=== PATIENT | female | born 1940 | race Hispanic/Latino ===

== ENCOUNTER → 2018-04-12 | Day surgery (SDC) | payer MEDICARE, BC ==
[2018-04-11 15:18] LABS: BASOPHILS # (AUTO) 0.1 (0.0-0.1); BASOPHILS % 0.5 % (0.0-1.0); EOSINOPHILS # (AUTO) 0.2 (0.0-0.4); EOSINOPHILS % 1.4 % (0.0-6.0); HEMATOCRIT 37.4 % (34.2-44.1); HEMOGLOBIN 12.8 g/dL (12.0-16.0); LYMPHOCYTES # (AUTO) 2.7 (1.0-3.2); LYMPHOCYTES % 23.9 % (18.0-39.1); MEAN CORPUSCULAR HEMOGLOBIN 33.1 pg (28-32); MEAN CORPUSCULAR HGB CONC 34.2 g/dL (31-35); MEAN CORPUSCULAR VOLUME 96.6 fL (81-99); MONOCYTES % 8.8 % (4.4-11.3); NEUTROPHILS # (AUTO) 7.4 (2.1-6.9); PLATELET COUNT 163 x10e3/uL (140-360); RED BLOOD COUNT 3.87 x10e6/uL (3.6-5.1); RED CELL DISTRIBUTION WIDTH 12.2 % (11.7-14.4)
[~2018-04-12] MED LIST: ALENDRONATE SOD70 MG PO; ARICEPT5 MG PO; CALCIUM ACETAT667 MG PO; CIPRO500 MG PO; CYMBALTA60 MG PO; DIOVAN HCT 1601 EACH PO; DOXYCYCLINE HY100 MG PO; HYDROXYCHLOROQ200 MG PO; JANUMET 50-1,01 EACH PO; LABETALOL HCL 5 MG/ML 20ML VIAL ONE; LEVOTHYROXINE112 MCG PO; LEVOTHYROXINE88 MCG PO; MECLIZINE HCL12.5 MG PO; METHOTREXATE2.5 MG PO; MIDAZOLAM HCL 2 MG/2 ML VIAL ONE; OMEPRAZOLE40 MG PO; ONDANSETRON HCL8 MG PO; PAROXETINE HCL10 MG PO; PROPOFOL IV EMULSION 10 MG/ML 50 ML VIAL ONE; TRADJENTA5 MG PO; TRESIBA SC; Z.0.DIOVAN40 MG PO; Z.0.FOLIC ACID1 MG PO; Z.0.HYDROXYCHLOROQ20 PO; Z.0.JANUVIA100 MG PO; Z.0.LANTUS 3ML100 UN SQ; Z.0.METFORMIN HCL500 PO; Z.0.PAROXETINE HCL20 PO; Z.0.PLAQUENIL200 MG PO; Z.0.SIMVASTATIN40 MG PO; Z.0.SYNTHROID125 MCG PO; Z.1.HUMALOG100 UNIT/ SQ; Z.1.METHOTREXATE2.5 PO
[2018-04-12 14:51] LABS: WBC,FECAL (FECAL LACTOFERRIN) POSITIVE (NEGATIVE)
--- NOTE | 2018-04-12 16:18 | Operative Report ---
DATE OF PROCEDURE: April 12, 2018 REFERRING PHYSICIAN: Dr. Yancy Pradhan. PROCEDURES PERFORMED 1. Esophagogastroduodenoscopy with biopsies. 2. Colonoscopy with polypectomy and biopsies. INDICATIONS FOR EGD: Upper abdominal pain and nausea. INDICATIONS FOR COLONOSCOPY: Lower abdominal pain, diarrhea, history of colon polyps. MEDICATION: Patient was done under MAC. Please see anesthesiologist's note. PROCEDURE: With patient in left lateral decubitus position, a flexible fiberoptic Olympus gastroscope was introduced into the esophagus under direct visualization without any difficulty. There was some patchy erythema noted in distal esophagus. The scope was then advanced with ease into the stomach traversing a small sliding hiatal hernia. Mucosa overlying the antrum revealed some diffuse erythema and moderate edema, and biopsies were obtained and sent to stain for H. pylori. Mucosa overlying the body revealed some patchy areas of somewhat atrophic mucosa, and biopsies were obtained. Pylorus appeared to be of normal contour and shape. He was intubated with ease, and the scope was advanced all the way to the second portion of the duodenum. The scope was then withdrawn slowly. Mucosa overlying the proximal second portion and the duodenal bulb appeared to be within normal limits. The scope was then withdrawn back into the stomach and retroflexed, and the mucosa overlying the fundus and the cardia appeared to be within normal limits. The scope was then straightened out. The stomach was decompressed. The scope was subsequently withdrawn. Patient tolerated the procedure well. IMPRESSION 1. Mild distal esophagitis. 2. Small sliding hiatal hernia. 3. Gastritis, biopsied. Biopsies sent to stain for Helicobacter pylori. PLAN: Follow up histology. Initiate Protonix 40 mg 1 p.o. q.a.m. a.c. Patient was then turned around; and after adequate lubrication of the anal canal, a flexible fiberoptic Olympus colonoscope was inserted into the rectum with ease and advanced all the way to the cecum. There was some focal nodularity in the cecal pouch that was biopsied. The ileocecal valve was intubated, and the scope was advanced into the terminal ileum. Biopsies were obtained. The scope was then withdrawn back into the colon. There was some diverticular disease noted in the cecum as well as the ascending colon. One polyp was hot biopsied from the ascending colon. The transverse grossly appeared to be within normal limits. Diverticular disease was also noted to involve the distal descending and the sigmoid colon. There were some patchy mild inflammatory changes noted in the left colon. Random biopsies were obtained. One polyp was hot biopsied from the descending colon. The scope was then retroflexed into the distal rectum and the area around the dentate line appeared to be within normal limits. The scope was then straightened out. It was subsequently withdrawn after securing an adequate stool specimen that was sent for the appropriate stool studies. Patient tolerated the procedure well. IMPRESSION 1. Focal nodularity, cecal pouch, biopsied. 2. Ascending colon polyp, hot biopsied. 3. Diverticulosis. 4. Descending colon polyp, hot biopsied. 5. Patchy mild left-sided colitis. PLAN: Follow up histology. Follow up stool studies. Initiate VSL#3 one p.o. q.d., Bentyl 10 mg 1 p.o. t.i.d. Timing of followup colonoscopy pending pathology report. Job#: [id number] LPA cc:DR. YANCY PRADHAN
[2018-04-13 14:56] LABS: C DIFFICILE TOXIN A&B AMP PROB **POSITIVE** (NEGATIVE)
--- OUTSIDE RECORDS SUMMARY | 2018-04-22 11:56 | XMS REPORT ---
[facility] Address Unknown Phone Unavailable Care Team Providers Care Surgical Product Sales Consultant Name Role Phone Unavailable Unavailable Payers Payer Name Policy Type Policy Number Effective Date Expiration Date Problems This patient has no known problems. Allergies, Adverse Reactions, Alerts Allergy Name Allergy Type Status Severity Reaction(s) Onset Date Inactive Date Treating Clinician Comments codeine DA Active U 2014-02-23 00:00:00 AMOXICYLIN DA Active U 2014-02-23 00:00:00 CODEINE DA Active U 2005-09-03 00:00:00 No Known Contrast Allergies DA Active U 2005-09-03 00:00:00 No Known Food Allergies DA Active U 2005-09-03 00:00:00 No Known Other Allergies DA Active U 2005-09-03 00:00:00 PENICILLIN DA Active U 2005-09-03 00:00:00 Penicillins DA Active U 2004-04-24 00:00:00 ibuprofen DA Active U 2004-04-24 00:00:00 Medications This patient has no known medications.
== END | disposition home or self-care (01) ==
LOC: OR 10:17
PROVIDERS: ATTEND Internal Medicine Gastroenterology
DX: K29.50 Unspecified chronic gastritis without bleeding (principal); K63.5 Polyp of colon; K51.50 Left sided colitis without complications; K31.89 Other diseases of stomach and duodenum; K20.9 Esophagitis, unspecified; K44.9 Diaphragmatic hernia without obstruction or gangrene; K63.89 Other specified diseases of intestine; K21.9 Gastro-esophageal reflux disease without esophagitis; K57.30 Diverticulosis of large intestine without perforation or abscess without bleeding; I10 Essential (primary) hypertension; R05 Cough; E03.9 Hypothyroidism, unspecified; E11.9 Type 2 diabetes mellitus without complications; Z88.0 Allergy status to penicillin; Z88.6 Allergy status to analgesic agent; Z91.040 Latex allergy status; Z01.810 Encounter for preprocedural cardiovascular examination; Z01.812 Encounter for preprocedural laboratory examination; Z79.4 Long term (current) use of insulin
CPT/HCPCS: 36415 ×2; 43239; 45380; 45384; 82948; 83630; 83993; 85025; 87045; 87177; 87328; 87493; 88305; 88312; 93005; J2250; J3490; 45378

== ENCOUNTER 2018-12-12 16:42 | Inpatient (IN) | payer MEDICARE, BC ==
[~2018-12-12] VITALS: Ht 152.4 cm; Wt 87.6 kg
[~2018-12-12 16:42] MED LIST changes: -LABETALOL HCL 5 MG/ML 20ML VIAL ONE; -MIDAZOLAM HCL 2 MG/2 ML VIAL ONE; -PROPOFOL IV EMULSION 10 MG/ML 50 ML VIAL ONE
--- OUTSIDE RECORDS SUMMARY | 2018-12-12 16:46 | XMS REPORT | Summary of Care ---
Author Author [facility] Organization [facility] Address Unknown Phone Unavailable Encounter HQ Encntr_alias(FIN) [id number] Date(s): 08/23/18 - 08/23/18 [facility] [address] [place] [address]- [phone] Discharge Disposition: Home or Self Care Attending Physician: Yancy Valenzuela MD Admitting Physician: Yancy Valenzuela MD Vital Signs No data available for this section Problem List No data available for this section Allergies, Adverse Reactions, Alerts No data available for this section Medications No data available for this section Results No data available for this section Immunizations No data available for this section Procedures No data available for this section Social History No data available for this section Assessment and Plan No data available for this section
[2018-12-12] MEDS ORDERED: SODIUM CHLORIDE 0.9% 500ML 500 ML IV STA (17:02)
[2018-12-12] MEDS ORDERED: ONDANSETRON HCL INJ 2MG/ML 2ML 2 MG/ML VIAL IV ONE (17:15)
[2018-12-12] MEDS ORDERED: FAMOTIDINE 20 MG/2 ML VIAL IV ONE ×2 (17:15→17:20)
[2018-12-12] MEDS ORDERED: ONDANSETRON HCL INJ 2MG/ML 2ML 2 MG/ML VIAL ONE (17:20)
[2018-12-12] MEDS ORDERED: SODIUM CHLORIDE 0.9% 500ML 500 ML ONE (17:21)
--- NOTE | 2018-12-12 17:34 | NUR ---
NOTIFIED DR MOORE TROP I 0.08
[2018-12-12] MEDS ORDERED: ASPIRIN 325 MG TAB ONE (17:53)
[2018-12-12] MEDS ORDERED: MORPHINE SULFATE 2 MG/ML SYR 1ML IV PRN (18:00)
[2018-12-12] MEDS ORDERED: SODIUM CHLORIDE FLUSH 10 ML SYR INJ PRN (18:00)
[2018-12-12] MEDS ORDERED: ASPIRIN 81 MG CHEW TAB PO ONE (18:00)
[2018-12-12] MEDS ORDERED: DIPHENHYDRAMINE HCL INJ 50 MG/ML VIAL IV PRN (18:00)
[2018-12-12] MEDS ORDERED: ACETAMINOPHEN 325 MG TAB PO PRN (18:00)
[2018-12-12] MEDS ORDERED: ONDANSETRON HCL INJ 2MG/ML 2ML 2 MG/ML VIAL IV PRN (18:00)
[2018-12-12] MEDS ORDERED: ZOLPIDEM TARTRATE 5 MG TAB PO PRN (18:00)
[2018-12-12] MEDS: FAMOTIDINE 20 MG/2 ML VIAL IV SCH (18:04)
--- NOTE | 2018-12-12 18:08 | NUR ---
NOTIFIED [facility] FOR PATIENT TRANSPORT VIA STRETCHER TO [facility], SPOKE WITH [place].
--- NOTE | 2018-12-12 18:11 | Diagnostic Imaging Report ---
Examination: Single AP view of the chest. COMPARISON: None. INDICATION: Shortness of breath DISCUSSION: Lines/tubes: None. Lungs: Increased interstitial markings. No consolidation. Pleura: No pleural effusion or pneumothorax. Heart and mediastinum: The heart and the mediastinum are unremarkable. Bones and soft tissues: No acute bony abnormalities. IMPRESSION: 1. No acute cardiopulmonary abnormalities. Signed by: Dr. Jose Cruz Ansari M.D. on 12/12/2018 6:07 PM
[2018-12-12] MEDS ORDERED: MORPHINE SULFATE INJ 4 MG/ML INJ 1ML IV PRN (18:15)
--- NOTE | 2018-12-12 18:15 | Diagnostic Imaging Report ---
EXAMINATION: CT of the abdomen and pelvis without contrast. TECHNIQUE: Helical CT images of the abdomen and pelvis were performed from the lung bases to the lesser trochanters. No intravenous contrast was given per renal stone protocol. Coronal and sagittal reformatted images were obtained. Dose modulation, iterative reconstruction, and/or weight based adjustment of the mA/kV was utilized to reduce the radiation dose to as low as reasonably achievable. COMPARISON: None. CLINICAL HISTORY:Abdominal pain DISCUSSION: ABSENCE OF INTRAVENOUS CONTRAST DECREASES SENSITIVITY FOR DETECTION OF FOCAL LESIONS AND VASCULAR PATHOLOGY. ABDOMEN/PELVIS: LOWER THORAX: Unremarkable. HEPATOBILIARY:No focal hepatic lesions. No biliary ductal dilation. The gallbladder is normal. SPLEEN: No splenomegaly. PANCREAS: No focal masses or ductal dilatation. ADRENALS: No adrenal nodules. KIDNEYS/URETERS: No hydronephrosis, stones, or solid mass lesions. PELVIC ORGANS/BLADDER: Bladder decompressed. Hysterectomy. PERITONEUM/RETROPERITONEUM: No free air or fluid. LYMPH NODES: No intra-abdominal,retroperitoneal, pelvic or inguinal lymphadenopathy. VESSELS: Limited evaluation GI TRACT: No obstruction. BONES AND SOFT TISSUES: Bone island in the right sacrum. IMPRESSION: No acute noncontrast CT finding. Signed by: Dr. Jose Cruz Ansari M.D. on 12/12/2018 6:11 PM
--- OUTSIDE RECORDS SUMMARY | 2018-12-12 18:27 | XMS REPORT | Continuity of Care Document ---
Author Author Aki gutierrez [facility] Interface Address Unknown Phone Unavailable Problems Problem Status Onset Date Classification Date Reported Comments Source XRAY Active 08/23/2018 [facility] 719.49 Active [facility] JOINT PAIN-MULT JTS Active [facility] PAIN IN RIGHT FOREARM Active [facility] Medications Medication Details Route Status Patient Instructions Ordering Provider Order Date Source Allergies, Adverse Reactions, Alerts Substance Category Reaction Severity Reaction type Status Date Reported Comments Source Immunizations Immunization Date Given Site Status Last Updated Comments Source Results Order Name Results Value Reference Range Date Interpretation Comments Source Forearm 2 views DX Forearm 2 views DX Patient Name: ARNOLD PARRA : 1940; Age: 78 years y/o Female MR: [id number] Study: 2 view examination of the right forearm dated 08/23/2018. Clinical Indication: - Fall; right forearm injury. Comparison: None Soft tissue swelling is seen to the posterior soft tissues of the right proximal to mid forearm. Mild olecranon spurring. Triangular fibrocartilage calcification noted. Osteopenia. No fracture, dislocation or radiopaque foreign body. SL: CSODEKYLEE-DENNYS 08/23/2018 - - Read by: Rory Cordova MD Dictated Date/time: 08/23/18 15:12 Electronically Signed by: Rory Cordova MD 08/23/18 15:14 FINAL REPORT [facility] Wrist complete DX Wrist complete DX Patient Name: ARNOLD PARRA : 1940; Age: 78 years y/o Female MR: [id number] Study: 3 view examination of the right wrist dated 08/23/2018. Clinical Indication: - Fall; right wrist injury Comparison: None Osteopenia. There is a 7 x 4 mm lucent lesion in the proximal and mid scaphoid bone that likely represents degenerative cyst. There is some degenerative changes about the radiocarpal joint. [place] fibrocartilage calcification identified. No fracture or dislocation. If there is snuffbox tenderness, cannot exclude an occult scaphoid fracture. Vascular calcification seen about the right wrist. SL: CSODERSTROM-PC 08/23/2018 - - Read by: Rory Cordova MD Dictated Date/time: 08/23/18 15:04 Electronically Signed by: Rory Cordova MD 08/23/18 15:06 FINAL REPORT [facility] Hand AP lateral Bilateral Hand AP lateral Bilateral Examination: Bilateral hands, 4 views History: 719.49 Pain in Joint Involving Multiple Sites Comparison: None. Findings: Multiple views of the bilateral hands show no acute bony fracture, joint dislocation, or suspicious osseous erosion. Scattered mild to moderate osteoarthritic changes throughout the DIP joints are seen with joint space narrowing and marginal osteophyte formation. The bones are demineralized. The soft tissues are unremarkable. Chondrocalcinosis in the region of the right triangular fibrocartilage is seen. IMPRESSION: 1. No acute bony abnormality of the bilateral hands and no suspicious osseous erosion. 2. 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 3. Chondrocalcinosis. SL: 12 08/06/2013 - - Read by: Jordin Vasquez Dictated Date/time: 08/06/13 17:56 Electronically Signed by: Jordin Vasquez MD 08/06/13 17:57 FINAL REPORT [facility] Vital Signs Vital Sign Value Date Comments Source Encounters Location Location Details Encounter Type Encounter Number Reason For Visit Attending Provider ADM Date DC Date Status Source [facility] Outpatient [id number] 719.49 LEILANI NELSON 08/06/2013 Active [facility] [id number] Yancy Valenzuela 08/23/2018 08/24/2018 [facility] Procedures Procedure Code Date Perfomer Comments Source
[2018-12-12] MEDS ORDERED: DEXTROSE 50% SYRINGE 50 ML IV PRN (18:30)
[2018-12-12] MEDS ORDERED: METOPROLOL TARTRATE 25 MG TAB PO SCH (18:30)
[2018-12-12] MEDS ORDERED: ENOXAPARIN SODIUM INJ 100 MG/ML SYR SC ONE (18:30)
[2018-12-12] MEDS ORDERED: METOPROLOL TARTRATE 50 MG TAB ONE ×2 (18:42→18:45)
[2018-12-12] MEDS ORDERED: ENOXAPARIN INJ 80 MG/0.8 ML SYR SC ONE ×2 (18:45→21:15)
[2018-12-12] MEDS: METOPROLOL TARTRATE 25 MG TAB PO SCH (18:48)
--- NOTE | 2018-12-12 18:50 | NUR ---
Received report from previous nurse. Call light within reach. Patient arrived via stretcher. Daughters at bedside
--- NOTE | 2018-12-12 19:03 | NUR ---
VERBAL REPORT GIVEN TO MISAEL LOZA.
[2018-12-12 19:45] VITALS: BP 167/72
[2018-12-12 20:00] VITALS: BP 167/72
--- NOTE | 2018-12-12 20:30 | NUR ---
Called [facility] about the patient who came in and asked if the patient received Lovenox shot which was suppose to be given at 1845. [facility] nurse, Nury said they did not have lovenox. I called Pharmacy to reschedule the medication and will administer lovenox injection here.
[2018-12-12 20:46] LABS: CREATINE KINASE MB 0.9 ng/mL (0-5.0)
[2018-12-12] MEDS: INSULIN REGULAR, HUMAN 100 UNIT/1 ML 3ML VIAL SQ SCH (21:32)
[2018-12-12] MEDS ORDERED: HYDROXYCHLOROQ200 MG PO (22:35)
[2018-12-12] MEDS ORDERED: FOLIC ACID1 MG PO (22:35)
[2018-12-12] MEDS ORDERED: VITAMIN D1000 UNI1 PO (22:35)
[2018-12-12] MEDS ORDERED: METHOTREXATE2.5 MG PO (22:35)
[2018-12-12] MEDS ORDERED: LEVOTHYROXINE88 MCG PO (22:35)
[2018-12-12] MEDS ORDERED: SUCRALFATE1 GM PO (22:35)
[2018-12-12] MEDS ORDERED: JANUVIA100 MG PO (22:35)
[2018-12-12] MEDS ORDERED: MECLIZINE HCL12.5 MG PO (22:35)
[2018-12-12] MEDS ORDERED: CYMBALTA30 MG PO (22:35)
[2018-12-12] MEDS: ENALAPRILAT IV INJ 1.25 MG/ML VIAL IV PRN (22:40)
[2018-12-12] MEDS ORDERED: CLOPIDOGREL BISULFATE 75 MG TAB PO ONE (23:00)
[2018-12-12] MEDS: ATORVASTATIN 20 MG TAB PO SCH (23:38)
[2018-12-12] MEDS: ASPIRIN 81 MG ENTERIC COATED PO SCH (23:38)
[2018-12-12] MEDS: NITROGLYCERIN 2% OINT 1 GM PKT TOP SCH (23:40)
[2018-12-13] VITALS (7 sets, daily range): BP systolic 119–163; BP diastolic 55–69
[2018-12-13 05:29] LABS: CREATINE KINASE MB 0.8 ng/mL (0-5.0)
[2018-12-13 05:47] LABS: CHOL/HDL RATIO 2.4 (3.0-3.6)
[2018-12-13] MEDS: FAMOTIDINE 20 MG/2 ML VIAL IV SCH ×2 (06:02→17:00)
[2018-12-13] MEDS: NITROGLYCERIN 2% OINT 1 GM PKT TOP SCH (06:02)
[2018-12-13] MEDS: METOPROLOL TARTRATE 25 MG TAB PO SCH ×2 (06:02→17:03)
--- NOTE | 2018-12-13 07:01 | NUR ---
GAVE REPORT TO ONCOMING NURSE. CALL LIGHT WITHIN REACH. PATIENT IN BED. DAUGHTER AT BEDSIDE.
[2018-12-13] MEDS: INSULIN REGULAR, HUMAN 100 UNIT/1 ML 3ML VIAL SQ SCH ×4 (08:05→20:30)
[2018-12-13] MEDS: ASPIRIN 81 MG ENTERIC COATED PO SCH (08:34)
[2018-12-13] MEDS: ASPIRIN 325 MG TAB EC PO SCH (08:34)
[2018-12-13] MEDS: SITAGLIPTIN 100 MG TAB PO SCH (13:02)
--- NOTE | 2018-12-13 13:26 | History and Physical ---
PRIMARY CARE PHYSICIAN: Dr. Yancy Valenzuela. FREELANCE GRAPHIC DESIGNER: Dr. Padilla Spain. CHIEF COMPLAINT: Chest pain with abnormal troponin I. HISTORY OF PRESENT ILLNESS: An 78-year-old female, passed approximately 4-5 days ago. Since then the patient was having a lot of agitation and stress, came in with epigastric pain, radiating to her back. The patient had a CT scan of abdomen and pelvis that was negative. The patient also had last years EGD and colonoscopy with unremarkable results. The patient's imaging abdominal and pelvic and chest x-ray unremarkable. However, on the blood work, her troponin I is 0.53, 0.52 on the second set. Her LDL was 57. The patient is otherwise stable. Baseline with multiple chronic medical problems including diabetes, hypertension, dyslipidemia. PAST SURGICAL HISTORY: Cholecystectomy, hysterectomy. SOCIAL HISTORY: The patient does not smoke or use alcohol. No recreational drugs. PAST MEDICAL HISTORY: Diabetes, functional dementia, depression, anxiety disorder, hypothyroidism, rheumatoid arthritis, dyslipidemia, hypertension, insulin required diabetes type 2. PHYSICAL EXAMINATION: VITAL SIGNS: Temperature is 98, blood pressure 141/65, pulse rate 53, respirations 20. GENERAL: The patient is not in acute distress. She is awake. HEENT: Normocephalic, atraumatic. Anicteric. NECK: Supple grossly. PULMONARY: Diminished breath sounds. CARDIOVASCULAR: S1, S2. Regular rate and rhythm. ABDOMEN: Soft, obese, nontender, non-distention. EXTREMITIES: No gross cyanosis or edema. NEUROLOGIC: No gross focal deficit. LABORATORY DATA: Sodium is 144, potassium 4, chloride 105, bicarb 30, BUN is 22, creatinine 1.6, glucose is 186. AST 137, ALT 81, alkaline phos 184. WBC 9.2, hemoglobin 10.8, hematocrit 33.5, platelets 205. Troponin I 0.53 and 0.52. LDL is 57. IMPRESSION: 1. Atypical chest pain with elevation of troponin I. Given the patient has been in a lot of stress lately, this could be anxiety with panic attack with cardiac troponin I spillage, but the patient does have multiple risk factors for coronary artery disease including rheumatoid arthritis, hypertension, dyslipidemia, diabetes, on insulin therapy. The patient should have a cardiac workup. Discussed with the patient and family. 2. Multiple chronic baseline problems. PLAN: Echocardiogram. Consultation with Dr. Padilla Spain. Home medication adjustment. We will continue to monitor this patient closely. MD SONJA Mendoza/ASHLEY /[id number]
--- NOTE | 2018-12-13 14:00 | NUR ---
REC'D PT AAOX3 VIA WHEELCHAIR, ON ROOM AIR, NO S/S OF DISTRESS, IV 20 GAUGE RIGHT AC WITH NO COMPLICATIONS. DRESSING IS DRY AND INTACT. TELE BOX #4 RUNNING AT SINUS RADHA. SIDE RAILS UP X2, CALL MCCARTY WITHIN REACH, AND BED IN LOWEST POSITION. DAUGHTER AT BEDSIDE.
[2018-12-13 14:37] LABS: CREATINE KINASE MB 0.9 ng/mL (0-5.0)
--- NOTE | 2018-12-13 14:57 | NUR ---
Nutrition Screen Note RD Recommendation for Physician: Consider changing to an 1800 ADA Plan of Care: RD following, monitoring for tolerance and adequacy Nutrition reason for involvement: Nutrition Risk Trigger - MST Primary Diagnose(s):[place] PMH:T2DM, Hypothyroidism, HTN, hyperlipidemia, cholecystectomy, dementia, Ht:60 in Wt:197lb BMI:38.5 kg/m2 IBW:100lb RD Assessment: (12/13/2018) Chart reviewed. Labs and meds reviewed. Initial encounter with patient. Diet Hx: Pt has no known food allergies. 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 Pt denies any difficulty chewing or swallowing. No N,V,D. No wt changes. Current Diet: Cardiac diet Malnutrition Evaluation (12/13/2018) The patient does not meet criteria for a specified degree of malnutrition at this time. Will re-evaluate at follow-up as appropriate. Diet Education Needs Assessment: Diet education not indicated. Nutrition Care Level:low Signed: Peter Bess RD, LD, [facility]
--- NOTE | 2018-12-13 16:08 | Consultation ---
DATE OF CONSULTATION: 12/13/2018 Neurology Consult Note HISTORY OF PRESENT ILLNESS: Ms. Orantes is an 78-year-old right-hand dominant woman with past medical history significant for hypertension, hyperlipidemia, diabetes mellitus type 2, and dementia, admitted to [facility] on December 12, 2018, under observation status for chest and abdominal pain. The Neurology Service is consulted for right-sided weakness. The patient and her daughters, who are at the bedside, endorse right hemiparesis. When questioned further, the patient's daughter's report Ms. Orantes leans or drifts toward the right side when sitting, standing, or walking. Often when she falls, it is toward the right side. One daughter suspects Ms. Orantes has weakness of the right leg as well. Other symptoms endorsed by the patient and her daughters are poor balance, impairment of gait, and a persistent sensation of dizziness, which is further described as vertiginous sensation. Neither the patient nor her daughters report a visual field cut or other disturbance, dysarthria, aphasia, facial droop, or weakness of the right arm. Neither the patient nor her daughters report numbness or tingling over the feet and forelegs. However, Ms. Orantes does report numbness over both hands and fingers. As stated above, the patient does have a history of dementia, probably of the Alzheimer type, diagnosed within the past few years. According to the patient's daughters, the above symptoms began approximately one year ago and have progressively worsened during this time. For the past two months, Ms. Orantes has required either a cane or a walker with ambulation. Neither the patient nor her daughters report an abrupt onset of the above symptoms. Ms. Orantes does not take anti-platelet or anticoagulant medication at home on a routine basis. Ms. Orantes does have an outpatient neurologist, Dr. Franchesca Finley, who treats her dementia. As regarding the patient's dementia, over the last few months, Ms. Orantes has experienced paranoid delusions and at times verbally aggressive behavior. The patient's daughters have scheduled a followup with Dr. Finley to discuss these symptoms. However, the followup appointment is not until the end of February 2019. REVIEW OF SYSTEMS: Chest pain, abdominal pain, anxiety, verbally aggressive behavior, paranoid delusions, memory impairment, possible weakness of the right leg, numbness of the hands and fingers, impairment of balance and gait, dizziness, which is further described as a vertiginous sensation. Otherwise, a 12-point review of systems is negative. PAST MEDICAL HISTORY: Hypertension, hyperlipidemia, diabetes mellitus type 2, thyroid disease, rheumatoid arthritis, osteoarthritis, multiple urinary tract infections, anxiety, dementia, presumably of the Alzheimer type, chronic vertigo. PAST SURGICAL HISTORY: Right knee replacement, cholecystectomy, total hysterectomy, right carpal tunnel release x2, hernia repair x2, bilateral cataract removal, surgery for an L1 vertebral compression fracture, section x2. PAST HOSPITALIZATIONS: Surgeries/procedures as listed, bilateral lower extremity cellulitis, chest pain, UTIs. FAMILY MEDICAL HISTORY: The patient's paternal and maternal grandparents are . Their medical histories are unknown. The patient's father is from a stroke. Her mother is . The mother's medical history is not known. Ms. Orantes had seven siblings, five brothers and two sisters. All five brothers and one sister are . One brother is from a stroke. Another brother from natural causes. Third brother from complications of alcoholism. The medical history and causes of of the other brothers is unknown. The sister who is , had coronary artery disease with a myocardial infarction and diabetes mellitus. One sister is living. She has prediabetes mellitus. Ms. Orantes has two children, both girls, who are alive. One daughter has diabetes mellitus. The other is healthy. SOCIAL HISTORY: Ms. Orantes is a recent . Her two weeks ago. The patient is retired. There is no reported current or prior tobacco, alcohol, or recreational drug use. HOME MEDICATIONS: Vitamin D3 of 50,000 units by mouth weekly, donepezil 10 mg by mouth daily, Cymbalta 60 mg by mouth daily, folic acid 1 mg by mouth twice daily, Plaquenil 200 mg by mouth at bedtime daily, Humalog 3 units subcutaneously sliding scale, levothyroxine 100 mcg by mouth daily, linagliptin 5 mg by mouth daily, meclizine 12.5 mg by mouth twice daily, methotrexate 2.5 mg by mouth weekly, paroxetine 20 mg by mouth daily, simvastatin 40 mg by mouth daily, Januvia 100 mg by mouth daily, sucralfate 1 g by mouth twice daily, Diovan 160/12.5 one tablet by mouth daily, Tresiba 10 units subcutaneously at bedtime daily. HOSPITAL MEDICATIONS: Tylenol, aspirin, Lipitor, Benadryl, Aricept, Cymbalta, enalapril, Lovenox, folic acid, Plaquenil, Humulin, Synthroid, meclizine, morphine sulfate, linagliptin, Zofran, paroxetine, Zocor, Januvia, sucralfate, and Ambien. ALLERGIES: PENICILLIN, CODEINE. NO KNOWN FOOD ALLERGIES. POSITIVE LATEX ALLERGY. NO KNOWN ALLERGIES TO IODINE OR OTHER CONTRAST MATERIALS. PHYSICAL EXAMINATION: VITAL SIGNS: Height 60 inches, weight 197 pounds, BMI 38.5 kg/m2. Blood pressure 119/56 mmHg, pulse 51 beats per minute, respiratory rate 17 breaths per minute, oxygen saturation 94% on 3 L by nasal cannula. GENERAL: The patient is awake and alert, does not appear distressed. Morbidly obese. HEENT: Normocephalic, atraumatic. Pupils are surgical. Moist mucous membranes. NECK: Supple. No appreciable thyromegaly. No appreciable carotid bruits. CARDIOVASCULAR: S1, S2, regular rate and rhythm. No murmurs, rubs, or gallops. RESPIRATORY: Clear to auscultation bilaterally. No wheezes, rhonchi, or rales. EXTREMITIES: The skin is warm and dry. No clubbing, cyanosis, or edema. The posterior tibial and dorsalis pedis pulses are 1+ and symmetric. SKIN: No rashes or lesions. NEUROLOGIC: Memory/Attention: The patient is awake and alert, oriented to person, place, time, and situation. Cranial Nerves: Cranial nerve I - not tested. Cranial nerve II, III, IV, and - pupils are surgical. Extraocular movements intact. No nystagmus. Cranial nerve V - sensation to light touch and pinprick is intact in the bilateral V1 through V3 distributions. Strength in the temporalis and masseter muscles is within normal limits. Cranial nerve VII - the face is symmetric as are all facial movements. Strength is within normal limits. Cranial nerve VIII - hearing is intact to finger rub bilaterally. Cranial nerve IX, X - the soft palate elevates equally and symmetrically. Cranial nerve XI - normal strength of the bilateral sternocleidomastoid and trapezius muscles. Cranial nerve XII - the tongue protrudes midline and moves symmetrically from [id number]. Strength: Bulk is normal. Strength is 5/5 in the bilateral deltoids, biceps, triceps, wrist flexors and extensors, finger flexors and extensors, intrinsic hand muscles, hip flexors, knee flexors and extensors, ankle dorsiflexion and plantar flexion, and intrinsic foot muscles. Tone is normal. DTRs: Deep tendon reflexes are 1+ and symmetric at the triceps and biceps. Deep tendon reflexes are trace and symmetric at the brachioradialis. Deep tendon reflexes are absent and symmetric at the patellas and Achilles. Plantar responses are flexor bilaterally. Sensation: Sensation is intact to light touch and pinprick in both arms and both legs. Cerebellar: Lwjgmr-qotr-wnmrni and heel-lechuga movements are intact without dysmetria or other impairments except as follows: There is mild dysmetria with [id number] movements of the right arm. Gait: Deferred. Speech: Spontaneous speech is normal without appreciable dysarthria or aphasia. Repetition is intact. Involuntary movements: None. Pronator Drift: Subtle in the right arm. LABORATORY DATA: POC glucose 131, 211. Creatine kinase 50, 45. CK-MB 0.90, 0.80. Troponin I 0.535, 0.521. Total cholesterol 126, triglycerides 87, LDL cholesterol 57, HDL cholesterol 52. DIAGNOSTIC STUDIES: Electrocardiogram on 12/12/2018: Normal sinus rhythm at 63 beats per minute. Right bundle-branch block. Chest x-ray on 12/12/2018: No acute cardiopulmonary abnormalities. CT of the abdomen/pelvis on 12/12/2018: No acute noncontrast CT finding. ASSESSMENT AND PLAN: Ms. Orantes is an 78-year-old right-hand dominant woman with multiple vascular risk factors, admitted to [facility] with chest pain. For the past one year (approximately), Ms. Orantes has been noted to lean/fall toward the right while sitting, standing, or walking, poor balance, impairment of gait, and dizziness which is further described as a vertiginous sensation. The patient's neurological examination is significant for diminished distal deep tendon reflexes, mild dysmetria of the right arm, and subtle pronator drift of the right arm. Her laboratory data and other diagnostic studies have been reviewed and are documented above. The patient's symptoms and findings on her neurological examination are suspicious for stroke of the posterior circulation. Specifically, a stroke of the right superior cerebellar hemisphere or cerebellar vermis. RECOMMENDATIONS: Are as follows: 1. A MRI of the brain without contrast will be ordered for further evaluation. 2. Defer treatment of the remaining medical comorbidities to the primary and other services at this time. Thank you for this consultation. I will continue to follow the patient while she remains in the hospital. TIME SPENT: 50 minutes. Ronit Fairbanks MD CP/ASHLEY /[id number] MTDAlphonso
--- NOTE | 2018-12-13 16:58 | Consultation ---
DATE OF CONSULTATION: 12/13/2018 REASON FOR CONSULTATION: Elevated troponin. CHIEF COMPLAINT: Abdominal pain. HISTORY OF PRESENT ILLNESS: This is an 78-year-old female with a history of hypertension, hyperlipidemia, diabetes, hypothyroidism, rheumatoid arthritis, chronic UTIs, chronic kidney disease, and early-onset dementia. [facility] with apparent complaints of abdominal pain, had a CT of the abdomen, showed no acute abnormalities noted. The patient went to see her PCP due to this abdominal pain x4 weeks, however, the abdominal pain progressed and was radiating into her back, so therefore went to the ER for further evaluation. In the ER, she was noted with elevated troponin and Cardiology was consulted. The patient is seen in the room, family is at the bedside, reports abdominal pain for about 4 weeks, however, over the past week progressed and radiated to her back. Reports abdominal pain exacerbated by oral intake, burning sensation with abdominal tenderness. The patient denies any chest pains, any shortness of breath, any orthopnea, any PND. EKG showing sinus rhythm with a right bundle branch block. Repeat troponins have been flat at 0.5 and 0.5 x2. PAST MEDICAL HISTORY: Hypertension, hyperlipidemia, diabetes, hypothyroidism, dementia, rheumatoid arthritis, chronic UTIs. PAST SURGICAL HISTORY: Cholecystectomy, hysterectomy, , hernia surgery x2, right carpal tunnel surgery x2, right knee surgery. SOCIAL HISTORY: She is a , her recently about 4 days ago. She is retired from [employer]. No alcohol or tobacco use. FAMILY HISTORY: Mother in the 70s, unknown cause. Father at 97, apparently had a history of stroke. She has a sister, who apparently had a history of [place] and diabetes. HOME MEDICATIONS: Aricept 10 mg daily, Cymbalta 60 mg daily, folic acid 1 mg b.i.d., hydroxychloroquine 200 mg daily, Humalog 3 units sliding scale, levothyroxine 100 mcg daily, Tradjenta 5 mg daily, meclizine 12.5 mg p.o. b.i.d., methotrexate 2.5 on Saturday, paroxetine 20 mg daily, simvastatin 40 mg daily, Januvia 100 mg daily, Carafate 1 g p.o. b.i.d., valsartan/hydrochlorothiazide 160/12.5 daily. ALLERGIES: PENICILLIN, CODEINE, AND LATEX. REVIEW OF SYSTEMS: GENERAL: No recent weight changes. Positive for fatigue, weakness. Denies any fevers, chills, or night sweats. HEENT: Denies any nausea, vomiting, vision changes, any blurred vision, double vision, earaches, any tinnitus, epistaxis, hoarseness, sore throat, swollen neck. CARDIAC: Denies any chest pain. Positive for dyspnea on exertion. Denies any orthopnea, PND, or lower extremity edema. RESPIRATORY: Denies any hemoptysis. Positive for shortness of breath on exertion. GI: Reports good appetite, however, reports epigastric pain, burning sensation, exacerbated by oral intake. Denies any diarrhea, constipation, melena, or hematochezia. URINARY: Positive for frequency, urgency. Denies any dysuria or hematuria. VASCULAR: Denies any lower extremity edema, claudication. MUSCULOSKELETAL: Generalized joint pains reported. NEUROLOGIC: Denies any tremors, any weakness, any blackout, seizures. HEMATOLOGY: Denies easy bruising, bleeding. ENDOCRINE: Denies any heat or cold intolerance. No polyuria, polydipsia, or polyphagia. PHYSICAL EXAMINATION: VITAL SIGNS: Height 60 inches, weight 197 pounds, BMI 38.5, temperature 97.9, pulse 51, respiratory rate 17, blood pressure 119/56, sat 94% on 2 L nasal cannula. GENERAL: Appears stated age, in no acute distress. SKIN: No rashes or bruises noted. HEENT: Normocephalic. Pupils equal and reactive. Extraocular movements are intact. Trachea midline. No thyromegaly noted. No JVD. Slight soft right carotid bruit noted. HEART: Regular rate and rhythm. Soft systolic murmur noted in the right upper sternal border. LUNGS: Bilateral breath sounds clear to auscultation. Good airway entry and exit. ABDOMEN: Soft. Positive for epigastric tenderness. No organomegaly noted. MUSCULOSKELETAL: Generalized muscle weakness. VASCULAR: +2 bilateral radial pulses, +1 DP, PT pulses bilaterally. NEUROLOGIC: Cranial nerves II through XII seem intact. LABORATORY DATA: Troponin 0.5 and 0.5. Glucose 211. LDL 57, HDL 52, total cholesterol 126, triglycerides 87. Sodium 144, potassium 4, chloride 105, bicarb 30, BUN 22, creatinine 1.6, glucose 186. IMAGING DATA: Chest x-ray, no acute cardiopulmonary abnormalities. CT of abdomen and pelvis, no contrast, no acute findings. ASSESSMENT: 1. Abdominal pain. 2. Gastritis. 3. Hypertension. 4. Hyperlipidemia. 5. Diabetes. 6. Chronic renal insufficiency. 7. Troponin leak. 8. Forgetful. 9. Obesity. PLAN: 1. The patient presents with epigastric pain, tenderness, was noted with elevated troponins as an outpatient. Denies any chest pain. We will evaluate the patient with an echo to evaluate heart function and structure. We will go ahead, get into carotid to evaluate any carotid anatomy. 2. We will go ahead and place the patient on telemetry to evaluate for any arrhythmias. We will go ahead and place the patient back on her statin and antihypertensive therapy. 3. We will continue to monitor the patient and adjust cardiac therapy as clinical course dictates. Further recommendation as clinical course dictates. Dictated by Chadwick Saunders NP Asif Spain MD DC/ASHLEY /[id number]
[2018-12-13] MEDS: MECLIZINE HCL 12.5 MG TAB PO SCH (16:59)
[2018-12-13] MEDS: FOLIC ACID 1 MG TAB PO SCH (16:59)
[2018-12-13] MEDS: ENOXAPARIN SOD INJ 40 MG/0.4 ML SYR SC SCH (17:01)
[2018-12-13] MEDS: SUCRALFATE 1 GM TAB PO SCH (17:01)
--- NOTE | 2018-12-13 19:15 | NUR ---
Received change of shift report from AM nurse. Rounds completed.
--- NOTE | 2018-12-13 19:42 | NUR ---
Patient in bed. No c/o pain at this time. AAOx3. IV to right AC intact. Will F/Up.
[2018-12-13] MEDS: DONEPEZIL HCL 5 MG TAB PO SCH (20:37)
[2018-12-13] MEDS: ATORVASTATIN 20 MG TAB PO SCH (20:37)
[2018-12-13] MEDS: HYDROXYCHLOROQUINE SULFATE 200 MG TAB PO SCH (20:38)
[2018-12-13] MEDS: TRESIBA SC SCH (20:38)
[2018-12-13] MEDS: SIMVASTATIN 40 MG TAB PO SCH (20:38)
[2018-12-14] VITALS (8 sets, daily range): BP systolic 146–174; BP diastolic 61–81
--- NOTE | 2018-12-14 | NUR ---
Patient AAOx1-2. Very lethargic. Turn q 2 hours and prn. Patient BS at 168. No insulin given because patient not eatting well. HR down to 40 but did not continue.
[2018-12-14] MEDS ORDERED: ACETAMINOPHEN 325 MG TAB PO PRN (00:15)
[2018-12-14] MEDS: LEVOTHYROXINE SODIUM 100 MCG TAB PO SCH (05:23)
[2018-12-14] MEDS: FAMOTIDINE 20 MG/2 ML VIAL IV SCH (05:23)
[2018-12-14] MEDS: METOPROLOL TARTRATE 25 MG TAB PO SCH ×2 (05:23→18:34)
[2018-12-14 05:58] LABS: BASOPHILS # (AUTO) 0.1 (0.0-0.1); BASOPHILS % 0.9 % (0.0-1.0); EOSINOPHILS # (AUTO) 0.3 (0.0-0.4); EOSINOPHILS % 3.7 % (0.0-6.0); HEMATOCRIT 32.7 % (34.2-44.1); HEMOGLOBIN 10.8 g/dL (12.0-16.0); LYMPHOCYTES # (AUTO) 1.8 (1.0-3.2); LYMPHOCYTES % 23.8 % (18.0-39.1); MEAN CORPUSCULAR HEMOGLOBIN 33.8 pg (28-32); MEAN CORPUSCULAR VOLUME 102.2 fL (81-99); MONOCYTES # (AUTO) 0.8 (0.2-0.8); MONOCYTES % 10.4 % (4.4-11.3); NEUTROPHILS # (AUTO) 4.6 (2.1-6.9); NEUTROPHILS % 60.9 % (38.7-80.0); PLATELET COUNT 163 x10e3/uL (140-360); RED CELL DISTRIBUTION WIDTH 13.2 % (11.7-14.4)
--- NOTE | 2018-12-14 06:10 | NUR ---
Patient resting quitly at this time with no c/o.
[2018-12-14 06:32] LABS: INR 0.97; PROTHROMBIN TIME 13.4 seconds (11.9-14.5)
[2018-12-14 06:43] LABS: ALBUMIN/GLOBULIN RATIO 1.1 (0.8-2.0); CREATININE, SERUM 1.51 mg/dL (0.57-1.11); PHOSPHORUS 3.4 MG/DL (2.3-4.7)
[2018-12-14 07:05] LABS: THYROID STIMULATING HORMONE 3.08 uIU/mL (0.350-4.940)
--- NOTE | 2018-12-14 07:10 | NUR ---
REC'D PATIENT ASLEEP. CHEST IS RISING UP AND DOWN WITH UNLABORED BREATHING. NO S/S OF DISTRESS. DAUGHTER AT THE BEDSIDE. BED IN LOWEST POSITION, SIDE RAILS UP X2, AND CALL MCCARTY WITHIN REACH.
--- NOTE | 2018-12-14 07:26 | NUR ---
CALLED IMAGING TO GET INFORMATION OVER BROKEN MRI MACHINE. WILL CALL BACK TO REPORT ANY INFORMATION ON MRI MACHINE STATUS.
[2018-12-14] MEDS: INSULIN REGULAR, HUMAN 100 UNIT/1 ML 3ML VIAL SQ SCH ×4 (07:30→21:28)
[2018-12-14 07:37] LABS: CHOL/HDL RATIO 2.9 (3.0-3.6)
[2018-12-14 07:43] LABS: CREATINE KINASE MB 0.9 ng/mL (0-5.0)
[2018-12-14] MEDS: PAROXETINE HCL 20 MG TAB PO SCH (08:26)
[2018-12-14] MEDS: DULOXETINE HCL 30 MG DELAYED RELEASE PO SCH (08:26)
[2018-12-14] MEDS: SITAGLIPTIN 100 MG TAB PO SCH (08:26)
[2018-12-14] MEDS: ASPIRIN 325 MG TAB EC PO SCH (08:26)
[2018-12-14] MEDS: FOLIC ACID 1 MG TAB PO SCH ×2 (08:26→18:33)
[2018-12-14] MEDS: SUCRALFATE 1 GM TAB PO SCH ×2 (08:26→17:00)
[2018-12-14] MEDS: MECLIZINE HCL 12.5 MG TAB PO SCH ×2 (08:26→18:33)
[2018-12-14] MEDS: LINAGLIPTIN 5 MG PO SCH (08:27)
--- NOTE | 2018-12-14 09:32 | NUR ---
CALLED RADIOLOGY TO GET UPDATE ON MRI MACHINE. HAS BEEN FIXED AND THEY ARE JUST WAITING ON THE CRUISE GUIDE TO GET HERE. NOTIFIED THEM THAT PATIENT HAS A STAT ORDER FOR MRI SINCE YESTERDAY. RADIOLOGY SAID THEY WILL LET THE CRUISE GUIDE KNOW.
--- NOTE | 2018-12-14 09:34 | NUR ---
MELINA FROM OR CALLED AND DR. DUNNE RESUMED ALL MEDICATIONS AND ADA DIET FOR PATIENT.
--- NOTE | 2018-12-14 10:11 | NUR ---
PATIENT TAKEN DOWN FOR MRI VIA WHEELCHAIR. D/C TELEMETRY ORDER PLACED BY DR. BLOOD.
--- NOTE | 2018-12-14 11:17 | NUR ---
PATIENT RETURNED FROM MRI PROCEDURE.
--- NOTE | 2018-12-14 11:45 | Diagnostic Imaging Report ---
History: vertigo Comparison studies: None Technique: Sagittal T2; axial DWI, FLAIR, MPGR, T1, Coronal FLAIR. Intravenous contrast: None Findings: Scalp: Normal in signal . No masses . Bone marrow: Normal in signal intensity. Extra-axial: No masses or fluid collections. Brain sulci: Appropriate for age. Ventricles: Normal in size . No hydrocephalus . Parenchyma: A few scattered T2 FLAIR hyperintense foci in the supratentorial white matter are nonspecific small vessel ischemic changes. No masses, hemorrhage, acute or chronic cortical ischemic insults. Suprasellar region: No abnormalities. Craniocervical junction: No abnormalities. Patent foramen magnum. No Chiari one malformation. Vessels: Normal flow-voids in the arteries and sinuses. IMPRESSION: 1. Minimal age-related supratentorial white matter small vessel ischemic changes. 2. Otherwise, no abnormalities. Signed by: Dr. Rohith Senior M.D. on 12/14/2018 11:42 AM
[2018-12-14 11:56] LABS: FOLATE > 40.0 ng/mL (7.0-15.4)
--- NOTE | 2018-12-14 11:57 | NUR ---
CALLED AND READ MRI RESULTS TO DR. COWAN.
--- NOTE | 2018-12-14 15:03 | NUR ---
URINE COLLECTED FOR URINE CULTURE AND URINALYSIS WITH MICRO. SPECIMEN CUP DATED, INITIALED, AND TIMED ON PATIENT'S LABEL STICKER. DROPPED OFF TO LAB.
[2018-12-14 15:18] LABS: BILIRUBIN,URINE NEGATIVE (NEGATIVE); CLARITY,URINE CLEAR (CLEAR); COLOR,URINE YELLOW (YELLOW); KETONES,URINE NEGATIVE (NEGATIVE); LEUKOCYTE ESTERASE ,URINE TRACE (NEGATIVE); NITRITE,URINE NEGATIVE (NEGATIVE); PROTEIN,URINE DIPSTICK 1+ (NEGATIVE); URINE UROBILINOGEN 0.2 mg/dL (0.2 - 1)
[2018-12-14 15:29] LABS: EPITHELIAL CELLS,URINE FEW /LPF; RBC,URINE 0-5 /HPF (0-5); WBC,URINE (MAN) 0-5 /HPF (0-5)
[2018-12-14] MEDS: ENALAPRILAT IV INJ 1.25 MG/ML VIAL IV PRN (16:10)
--- NOTE | 2018-12-14 17:42 | NUR ---
PATIENT IN BED ON ROOM AIR WITH NO S/S OF DISTRESS. DAUGHTERS AT BEDSIDE. BED IN LOWEST POSITION, SIDE RAILS UPX2, AND CALL MCCARTY WITHIN REACH.
--- NOTE | 2018-12-14 17:50 | NUR ---
ADAPTED PHYSICAL EDUCATION TEACHER IN ROOM PERFORMING ULTRASOUND OF ABDOMEN.
--- NOTE | 2018-12-14 18:30 | NUR ---
ULTRASOUND AT THE BEDSIDE COMPLETE.
[2018-12-14] MEDS: ENOXAPARIN SOD INJ 40 MG/0.4 ML SYR SC SCH (18:33)
[2018-12-14] MEDS: DONEPEZIL HCL 5 MG TAB PO SCH (21:28)
[2018-12-14] MEDS: SIMVASTATIN 40 MG TAB PO SCH (21:28)
[2018-12-14] MEDS: ATORVASTATIN 20 MG TAB PO SCH (21:29)
[2018-12-14] MEDS: HYDROXYCHLOROQUINE SULFATE 200 MG TAB PO SCH (21:29)
[2018-12-14] MEDS: TRESIBA SC SCH (21:30)
[2018-12-15 00:04] VITALS: BP 154/67
[2018-12-15 04:41] VITALS: BP 135/59
[2018-12-15] MEDS: LEVOTHYROXINE SODIUM 100 MCG TAB PO SCH (05:43)
[2018-12-15] MEDS: METOPROLOL TARTRATE 25 MG TAB PO SCH (05:44)
--- NOTE | 2018-12-15 07:05 | NUR ---
Gave report to oncoming nurse. Patient is asleep in bed. Daughter at bedside. Call light within reach
--- NOTE | 2018-12-15 07:06 | NUR ---
Gave report to alona em. Patient is asleep in bed. Call light within reach Addendum: 12/15/18 at 0707 by Tori Stuart RN entered in error
[2018-12-15] MEDS: INSULIN REGULAR, HUMAN 100 UNIT/1 ML 3ML VIAL SQ SCH ×3 (07:30→16:30)
--- NOTE | 2018-12-15 07:30 | Diagnostic Imaging Report ---
EXAM: US ABDOMEN COMPLETE INDICATION: Abdominal pain. COMPARISON: CT Abdomen/Pelvis without contrast 12/12/2018 TECHNIQUE: Transverse and longitudinal mack scale and color doppler sonographic images of the abdomen were obtained. FINDINGS: Somewhat limited study due to the patient's large body habitus. LIVER Measures 10.6 cm in the right midclavicular line. Normal echogenicity of the liver with normal contour, no masses. SPLEEN Measures 10.2 cm in maximum diameter. Normal echogenicity, no masses. GALLBLADDER Status post cholecystectomy. BILE DUCTS No intra nor extra-hepatic biliary dilation. Common bile duct measures 0.3 cm PANCREAS: Visualized portions are normal. RIGHT KIDNEY: Measures 9.5 cm Echogenicity: Normal Collecting System: No hydronephrosis Stones: None Cyst/Mass: None LEFT KIDNEY: Measures 9.2 cm Echogenicity: Normal Collecting System: No hydronephrosis Stones: None Cyst/Mass: None VESSELS: Aorta: Visualized portions are within normal size limits Inferior Vena Cava: Visualized portions are normal Main Portal Vein: 1.1 cm, normal size with hepatopetal flow. FREE FLUID: None IMPRESSION: No acute sonographic abnormality. Status post cholecystectomy. Signed by: Dr. Mac Newsome MD on 12/15/2018 7:26 AM
[2018-12-15 07:46] VITALS: BP 133/61
[2018-12-15 08:15] VITALS: BP 133/61
[2018-12-15] MEDS: PAROXETINE HCL 20 MG TAB PO SCH (08:15)
[2018-12-15] MEDS: MECLIZINE HCL 12.5 MG TAB PO SCH (08:15)
[2018-12-15] MEDS: DULOXETINE HCL 30 MG DELAYED RELEASE PO SCH (08:15)
[2018-12-15] MEDS: SUCRALFATE 1 GM TAB PO SCH (08:15)
[2018-12-15] MEDS: SITAGLIPTIN 100 MG TAB PO SCH (08:15)
[2018-12-15] MEDS: ASPIRIN 325 MG TAB EC PO SCH (08:15)
[2018-12-15] MEDS: LINAGLIPTIN 5 MG PO SCH (09:00)
[2018-12-15] MEDS ORDERED: CLOPIDOGREL BISULFATE 75 MG TAB PO SCH (09:00)
[2018-12-15] MEDS ORDERED: FAMOTIDINE 20 MG TAB PO SCH (11:00)
[2018-12-15] MEDS ORDERED: SUCRALFATE 1 GM TAB PO SCH (11:30)
--- NOTE | 2018-12-15 11:31 | NUR ---
CM TO BEDSIDE TO DISCUSS IMM AND MEDICARE RIGHTS - QUESTIONS ANSWERED. PATIENT/FAMILY VERBALIZED UNDERSTANDING. CM OBTAINED SIGNATURE. COPY OF LETTER TO THE CHART AND COPY LEFT AT BEDSIDE.
[2018-12-15 11:36] VITALS: BP 136/63
[2018-12-15] MEDS ORDERED: ONDANSETRON HCL 4 MG ORAL DISINTEGRATING TAB PO PRN (12:45)
[2018-12-15] MEDS ORDERED: SEROQUEL25 MG PO (15:44)
[2018-12-15] MEDS ORDERED: CYMBALTA20 MG PO (15:45)
[2018-12-15 15:58] VITALS: BP 151/65
--- NOTE | 2018-12-15 16:01 | NUR ---
ORDER RECEIVED FOR SNF LOC FOR IV ABX. CALL WAS PLACED TO THE PT'S DTR ARIADNA, BUT STATES HER BROTHER BRANDI IS HER MPOA AND HANDLES ALL OF THEIR MOTHER'S BUSINESS. CALL WAS PLACED TO STEPH @ [phone]. CONSENT WAS GIVEN FOR CHOICE LETTER FOR [facility]. 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 COPY TO CHART AND COPY TO PT'S FOLDER. EXPLAINED IMM LETTER. VERBALIZED UNDERSTANDING. IMM LETTER WAS SIGNED AND COPY TO CHART AND COPY TO PT'S FOLDER. CLINICALS WERE FAXED TO [facility] @ OFF: [phone] / FAX: [phone]. CONTACT: BHARGAVI WU WAS INITIATED. Addendum: 12/15/18 at 1614 by Lilia Maurice CM ABOVE NOTE ENTERED IN ERROR.
--- NOTE | 2018-12-15 16:50 | NUR ---
patient alert and oriented with daughter at the bedside. discharge instructions discussed at this time, both verbalized understanding. IV discontinued, catheter in tact and pressure dressing applied. patient to be wheeled out to personal auto for daughter to drive home.
[2018-12-15] MEDS ORDERED: DULOXETINE HCL 20 MG DELAYED RELEASE PO SCH (17:00)
[2018-12-15] MEDS ORDERED: DULOXETINE HCL 30 MG DELAYED RELEASE PO SCH (17:00)
[2018-12-15] MEDS ORDERED: QUETIAPINE FUMARATE 25 MG TAB PO SCH (21:00)
--- NOTE | 2018-12-15 22:57 | Consultation ---
DATE OF CONSULTATION: 12/15/2018 Psychiatric Consultation. The patient evaluated and events noted. REASON FOR CONSULTATION: To evaluate patient's psychosis and dementia and mood. HISTORY OF PRESENT ILLNESS: The patient is an 78-year-old female, admitted to the hospital for myocardial infarction. Psychiatric consultation is called to evaluate the patient's psychosis. As per medical record, the patient has history of hypertension, hyperlipidemia, diabetes, dementia, admitted to [facility] for chest pain and abdominal pain. Upon evaluation today, the patient is found to be in the room with her daughter. She is alert, awake, and oriented to situation. She agrees to have daughter in the room during the assessment. The patient is irritable, tests and labs. She is frustrated and easily irritable. She reported anxiety and depression. Her recently . She feeling hopeless and helpless. Does not believe that life is worth living, but denies any suicidal ideation. She denies any hallucination. She reports poor sleep and poor appetite. The patient is diabetic. Collaborative report from the daughter who is in the room, daughter reports that since the patient's she has been isolative. She is verbally uncooperative and verbally aggressive at times. She refused to take her medication. At times, she refuses to go to the doctor, even though she appears to have very supportive daughters. The patient's daughter claims that the patient has been forgetful, paranoid, and believes people were stealing her things, and at this time medication of Seroquel antipsychotic was discussed and daughter agreed that her mom would benefit from such medication. Side effect of antipsychotic was discussed and daughter agreed and verbalized understanding. Daughter also agrees to have follow with outpatient psychiatry. PAST PSYCHIATRIC HISTORY: The patient denies past psychiatric history, although she has history of dementia and takes medication for depression. She denies past suicide attempts. She denies alcohol or drug use. SOCIAL HISTORY: Denies. SOCIAL HISTORY: The patient lives alone. MENTAL STATUS EXAM: The patient is a female. She is alert, awake, and oriented to situation. Her mood is depressed, anxious, irritable, or hostile. Affect congruent with mood. Psychomotor status is activated. She denies any suicidal or homicidal ideation. She denies any hallucination. Thought process is concrete. Thought content is suspicious and paranoia. Insight and judgment are limited to fair. Memory appears to be grossly impaired. CURRENT MEDICATIONS: 1. Sucralfate. 2. Famotidine. 3. Insulin. 4. Plavix. 5. Januvia. 6. Antivert. 7. Lopressor. 8. Synthroid. 9. Hydroxychloroquine sulfate. 10. Lipitor. 11. Aricept. 12. Tylenol. 13. Morphine p.r.n. 14. Cymbalta 60 mg p.o. daily. 15. Ondansetron. 16. Folic acid. 17. Dextrose. 18. Sodium chloride. CURRENT LABS: WBC 7.59, RBC 3.20, hemoglobin 10.8, hematocrit 32.7, platelets 163. Sodium 139, potassium 4, chloride 106, CO2 is 27, BUN 25, creatinine 1.51. AST 79, ALT 65. ASSESSMENT: 1. Unspecified psychosis. 2. Unspecified dementia with behavior disturbance. 3. Major depressive disorder, recurrent, moderate. PLAN: 1. Increase Cymbalta to 40 mg p.o. b.i.d. 2. Add Seroquel 25 mg p.o. at bedtime. 3. Continue with Aricept 10 mg p.o. at bedtime. 4. Recommend follow with outpatient psychiatry. 5. Recommend family members to help with the medication delivery. 6. Monitor for mood. 7. Supportive therapy. Thank you for this consultation. Dictated by Amparo Smith PA-C José Miguel Arriaza MD [facility]/MODL /[id number]
--- NOTE | 2018-12-16 00:58 | Discharge Summary ---
CONSULTANTS: Dr. Padilla Spain. Dr. Fairbanks. Dr. José Miguel Arriaza. FINAL DIAGNOSES: 1. Chest pain with slight elevation of troponin I 0.5. 2. Major depression with anxiety disorder. 3. Abdominal pain, ongoing. 4. Baseline reflux, obesity, and anxiety disorder. SUMMARY: The patient is an 78-year-old female per family been symptomatic with multiple pain area, chest pain, abdominal pain, shoulder pain, pain all over. Apparently, the patient was more anxious and depressed along with paranoia symptoms per patient's family. The patient's spouse approximately 4-5 days ago, but since then the patient is having increasing multiple complaints. She is on extensive multiple medication. She is anxious and had depression. She is on multiple SSRI. The patient has slight increase in troponin I on chest pain, 0.5 multiple sets. The patient did not want any cardiac workup at this time per Dr. Padilla Spain. Option was given. The patient, however, is very anxious. Neurology consultation obtained. MRI of the brain was negative. CT scan abdomen and pelvis is otherwise unremarkable. The patient is otherwise stable at this time. Psychiatry, Dr. José Miguel Arriaza saw the patient and changes were made to patient's medication overall. Prescriptions are given. The patient to follow up with Dr. Arriaza as an outpatient for further medication adjustment. At this time, the patient is stable, discharged home, follow up closely as an outpatient for any further workup. I advised the patient to have cardiac workup in the near future. MD SONJA Mendoza/ASHLEY /[id number]
[2018-12-16] MEDS ORDERED: FOLIC ACID 1 MG TAB PO SCH (09:00)
== END 2018-12-15 16:53 | disposition home or self-care (01) | DRG 880 ==
LOC: FSED 16:42 → ERHOLD 18:01 → IMCU 19:52 → OBSVTOIN 12-13 10:21 → MED/SURG3 12-13 14:24
PROVIDERS: ADMIT Internal Medicine; ATTEND Internal Medicine
DX: F41.0 Panic disorder [episodic paroxysmal anxiety] (principal); F03.91 Unspecified dementia, unspecified severity, with behavioral disturbance; F32.9 Major depressive disorder, single episode, unspecified; F41.9 Anxiety disorder, unspecified; K21.9 Gastro-esophageal reflux disease without esophagitis; E66.9 Obesity, unspecified; Z68.37 Body mass index [BMI] 37.0-37.9, adult; M06.9 Rheumatoid arthritis, unspecified; I10 Essential (primary) hypertension; E78.5 Hyperlipidemia, unspecified; E11.9 Type 2 diabetes mellitus without complications; Z90.49 Acquired absence of other specified parts of digestive tract; Z90.710 Acquired absence of both cervix and uterus; D53.1 Other megaloblastic anemias, not elsewhere classified; F29 Unspecified psychosis not due to a substance or known physiological condition
CPT/HCPCS: 36415; 70551; 71045; 74176; 76700; 80048; 80053; 80061; 80076; 81001; 81003; 82550; 82553; 82607; 82746; 82948; 83735; 84100; 84443; 84484; 85025; 85610; 87086; 93005; 93306; 93880; 99284; G0378; J1200; J1650; J2270; J2405; J7040

== ENCOUNTER 2020-10-05 17:48 | Inpatient (IN) | payer MEDICARE, BC ==
[~2020-10-05] VITALS: Ht 157.5 cm; Wt 76.5 kg
[~2020-10-05 17:48] MED LIST changes: +CYMBALTA20 MG PO; +CYMBALTA30 MG PO; +FOLIC ACID1 MG PO; +JANUVIA100 MG PO; +SEROQUEL25 MG PO; +SUCRALFATE1 GM PO; +VITAMIN D1000 UNI1 PO
[2020-10-05] MEDS ORDERED: MECLIZINE HCL 12.5 MG TAB PO ONE (18:15)
[2020-10-05] MEDS ORDERED: SODIUM CHLORIDE 0.9% 1000ML 1,000 ML ONE (18:27)
[2020-10-05 18:37] LABS: BASOPHILS # (AUTO) 0.1 (0.0-0.1); BASOPHILS % 0.4 % (0.0-1.0); EOSINOPHILS % 0.3 % (0.0-6.0); HEMOGLOBIN 14.3 g/dL (12.0-16.0); LYMPHOCYTES # (AUTO) 1.9 (1.0-3.2); LYMPHOCYTES % 13.9 % (18.0-39.1); MEAN CORPUSCULAR HEMOGLOBIN 33.6 pg (28-32); MEAN CORPUSCULAR VOLUME 98.8 fL (81-99); MONOCYTES # (AUTO) 0.7 (0.2-0.8); MONOCYTES % 5.3 % (4.4-11.3); NEUTROPHILS # (AUTO) 11.1 (2.1-6.9); NEUTROPHILS % 79.7 % (38.7-80.0); PLATELET COUNT 207 x10e3/uL (140-360); RED BLOOD COUNT 4.25 x10e6/uL (3.6-5.1); RED CELL DISTRIBUTION WIDTH 13.3 % (11.7-14.4)
[2020-10-05] MEDS: SODIUM CHLORIDE 0.9% 1000ML 1,000 ML IV SCH (18:40)
[2020-10-05 19:07] LABS: ALBUMIN 4.1 g/dL (3.5-5.0); ALBUMIN/GLOBULIN RATIO 1.4 (0.8-2.0); ANION GAP 19.9 mmol/L (8-16); CALCIUM 9.1 mg/dL (8.4-10.2); CREATININE, SERUM 1.76 mg/dL (0.57-1.11); POTASSIUM 3.9 mmol/L (3.5-5.1)
[2020-10-05 19:13] LABS: CREATINE KINASE MB 1.4 ng/mL (0-5.0)
[2020-10-05] MEDS ORDERED: ASPIRIN 81 MG CHEW TAB PO ONE (20:00)
[2020-10-05 21:53] LABS: CLARITY,URINE CLOUDY (CLEAR); COLOR,URINE YELLOW (YELLOW); KETONES,URINE 1+ (NEGATIVE); LEUKOCYTE ESTERASE ,URINE NEGATIVE (NEGATIVE); NITRITE,URINE NEGATIVE (NEGATIVE); PROTEIN,URINE DIPSTICK 2+ (NEGATIVE); URINE UROBILINOGEN 0.2 mg/dL (0.2 - 1)
[2020-10-05 22:03] LABS: AMORPHOUS SEDIMENT,URINE MANY (FEW); BACTERIA,URINE MODERATE /HPF; EPITHELIAL CELLS,URINE FEW /LPF; RBC,URINE 0-5 /HPF (0-5); WBC,URINE (MAN) 0-5 /HPF (0-5)
[2020-10-05 23:00] VITALS: BP 137/69
[2020-10-06] VITALS (24 sets, daily range): BP systolic 101–161; BP diastolic 41–91
[2020-10-06] MEDS: SODIUM CHLORIDE 0.9% 1000ML 1,000 ML IV SCH ×2 (04:20→04:31)
[2020-10-06 05:32] LABS: CREATINE KINASE MB 1.6 ng/mL (0-5.0)
[2020-10-06 06:33] LABS: CHOL/HDL RATIO 2.4 (3.0-3.6)
[2020-10-06 08:26] LABS: BASOPHILS # (AUTO) 0.1 (0.0-0.1); BASOPHILS % 0.4 % (0.0-1.0); EOSINOPHILS # (AUTO) 0.2 (0.0-0.4); EOSINOPHILS % 1.3 % (0.0-6.0); HEMATOCRIT 38.2 % (34.2-44.1); HEMOGLOBIN 12.7 g/dL (12.0-16.0); LYMPHOCYTES # (AUTO) 2.5 (1.0-3.2); LYMPHOCYTES % 18.9 % (18.0-39.1); MEAN CORPUSCULAR HEMOGLOBIN 33.9 pg (28-32); MEAN CORPUSCULAR HGB CONC 33.2 g/dL (31-35); MEAN CORPUSCULAR VOLUME 101.9 fL (81-99); MONOCYTES # (AUTO) 0.7 (0.2-0.8); MONOCYTES % 5.2 % (4.4-11.3); NEUTROPHILS % 73.8 % (38.7-80.0); PLATELET COUNT 151 x10e3/uL (140-360); RED BLOOD COUNT 3.75 x10e6/uL (3.6-5.1); RED CELL DISTRIBUTION WIDTH 13.2 % (11.7-14.4)
[2020-10-06 08:36] LABS: ANION GAP 21.5 mmol/L (8-16); CALCIUM 8.7 mg/dL (8.4-10.2); CREATININE, SERUM 1.54 mg/dL (0.57-1.11); POTASSIUM 3.5 mmol/L (3.5-5.1)
[2020-10-06] MEDS ORDERED: DEXTROSE 50% SYRINGE 50 ML IV PRN (08:45)
[2020-10-06] MEDS ORDERED: PAROXETINE HCL 20 MG PO SCH (09:00)
[2020-10-06] MEDS: LEVOTHYROXINE SODIUM 100 MCG TAB PO SCH (09:00)
[2020-10-06] MEDS ORDERED: CLINDAMYCIN 600MG / 50ML 50 ML IV ONE (10:50)
[2020-10-06] MEDS: PAROXETINE HCL 20 MG TAB PO SCH (11:30)
[2020-10-06] MEDS: INSULIN LISPRO 100 UNIT/1 ML 3ML VIAL SQ SCH ×3 (12:30→20:59)
[2020-10-06] MEDS: MECLIZINE HCL 12.5 MG TAB PO SCH ×2 (12:30→17:23)
[2020-10-06] MEDS: DULOXETINE HCL 20 MG DELAYED RELEASE PO SCH ×2 (12:30→17:23)
[2020-10-06] MEDS: FOLIC ACID 1 MG TAB PO SCH ×2 (12:30→17:23)
[2020-10-06] MEDS: SITAGLIPTIN 100 MG TAB PO SCH (12:30)
[2020-10-06] MEDS: AZTREONAM 1 GM/NS 50 ML 50 ML IV SCH ×2 (12:30→21:09)
[2020-10-06 14:08] LABS: CREATINE KINASE MB 1.8 ng/mL (0-5.0)
[2020-10-06] MEDS: ENOXAPARIN SOD INJ 40 MG/0.4 ML SYR SC SCH (17:23)
[2020-10-06] MEDS: TRESIBA 10 UNIT SQ SCH (21:00)
[2020-10-06] MEDS: DONEPEZIL HCL 5 MG TAB PO SCH (21:09)
[2020-10-06] MEDS: QUETIAPINE FUMARATE 25 MG TAB PO SCH (21:10)
[2020-10-06] MEDS: METOPROLOL TARTRATE 25 MG TAB PO SCH (21:10)
[2020-10-06] MEDS: HYDROXYCHLOROQUINE SULFATE 200 MG TAB PO SCH (21:10)
[2020-10-06] MEDS: SIMVASTATIN 40 MG TAB PO SCH (21:10)
[2020-10-07] VITALS (12 sets, daily range): BP systolic 126–154; BP diastolic 53–114
[2020-10-07] MEDS: SODIUM CHLORIDE 0.9% 1000ML 1,000 ML IV SCH ×3 (00:12→20:15)
[2020-10-07 05:01] LABS: BASOPHILS # (AUTO) 0.1 (0.0-0.1); BASOPHILS % 0.6 % (0.0-1.0); EOSINOPHILS # (AUTO) 0.2 (0.0-0.4); EOSINOPHILS % 1.8 % (0.0-6.0); HEMATOCRIT 36.4 % (34.2-44.1); HEMOGLOBIN 12.1 g/dL (12.0-16.0); LYMPHOCYTES # (AUTO) 1.3 (1.0-3.2); LYMPHOCYTES % 12.8 % (18.0-39.1); MEAN CORPUSCULAR HEMOGLOBIN 33.8 pg (28-32); MEAN CORPUSCULAR HGB CONC 33.2 g/dL (31-35); MEAN CORPUSCULAR VOLUME 101.7 fL (81-99); MONOCYTES # (AUTO) 0.6 (0.2-0.8); MONOCYTES % 6.2 % (4.4-11.3); NEUTROPHILS # (AUTO) 7.9 (2.1-6.9); NEUTROPHILS % 78.2 % (38.7-80.0); PLATELET COUNT 155 x10e3/uL (140-360); RED BLOOD COUNT 3.58 x10e6/uL (3.6-5.1); RED CELL DISTRIBUTION WIDTH 13.1 % (11.7-14.4)
[2020-10-07 05:19] LABS: ANION GAP 13.3 mmol/L (8-16); CALCIUM 8.3 mg/dL (8.4-10.2); CREATININE, SERUM 1.38 mg/dL (0.57-1.11); POTASSIUM 3.3 mmol/L (3.5-5.1)
[2020-10-07] MEDS: LEVOTHYROXINE SODIUM 100 MCG TAB PO SCH (06:27)
[2020-10-07] MEDS: INSULIN LISPRO 100 UNIT/1 ML 3ML VIAL SQ SCH ×4 (08:08→20:51)
[2020-10-07] MEDS ORDERED: POTASSIUM CHLORIDE 10MEQ EA PO ONE (09:00)
[2020-10-07] MEDS: MECLIZINE HCL 12.5 MG TAB PO SCH ×2 (09:37→17:22)
[2020-10-07] MEDS: AZTREONAM 1 GM/NS 50 ML 50 ML IV SCH ×2 (09:37→20:50)
[2020-10-07] MEDS: ASPIRIN 81 MG ENTERIC COATED PO SCH (09:37)
[2020-10-07] MEDS: DULOXETINE HCL 20 MG DELAYED RELEASE PO SCH ×2 (09:37→17:22)
[2020-10-07] MEDS: FOLIC ACID 1 MG TAB PO SCH ×2 (09:38→17:22)
[2020-10-07] MEDS: SITAGLIPTIN 100 MG TAB PO SCH (09:38)
[2020-10-07] MEDS: PAROXETINE HCL 20 MG TAB PO SCH (09:38)
[2020-10-07] MEDS: METOPROLOL TARTRATE 25 MG TAB PO SCH ×2 (09:39→20:25)
[2020-10-07] MEDS: ENOXAPARIN SOD INJ 40 MG/0.4 ML SYR SC SCH (17:22)
[2020-10-07] MEDS: SIMVASTATIN 40 MG TAB PO SCH (20:50)
[2020-10-07] MEDS: QUETIAPINE FUMARATE 25 MG TAB PO SCH (20:50)
[2020-10-07] MEDS: HYDROXYCHLOROQUINE SULFATE 200 MG TAB PO SCH (20:50)
[2020-10-07] MEDS: DONEPEZIL HCL 5 MG TAB PO SCH (20:50)
[2020-10-07] MEDS: TRESIBA 10 UNIT SQ SCH (20:51)
[2020-10-08] VITALS (9 sets, daily range): BP systolic 103–158; BP diastolic 45–64
[2020-10-08] MEDS: LEVOTHYROXINE SODIUM 100 MCG TAB PO SCH (05:42)
[2020-10-08] MEDS: MECLIZINE HCL 12.5 MG TAB PO SCH ×2 (05:44→16:09)
[2020-10-08] MEDS: SODIUM CHLORIDE 0.9% 1000ML 1,000 ML IV SCH ×3 (05:49→21:27)
[2020-10-08] MEDS: INSULIN LISPRO 100 UNIT/1 ML 3ML VIAL SQ SCH ×4 (07:30→21:00)
[2020-10-08] MEDS: METOPROLOL TARTRATE 25 MG TAB PO SCH ×2 (08:31→21:26)
[2020-10-08] MEDS: FOLIC ACID 1 MG TAB PO SCH ×2 (08:42→16:09)
[2020-10-08] MEDS: SITAGLIPTIN 100 MG TAB PO SCH (08:42)
[2020-10-08] MEDS: ASPIRIN 81 MG ENTERIC COATED PO SCH (08:42)
[2020-10-08] MEDS: DULOXETINE HCL 20 MG DELAYED RELEASE PO SCH ×2 (08:42→16:09)
[2020-10-08] MEDS: PAROXETINE HCL 20 MG TAB PO SCH (08:42)
[2020-10-08] MEDS: AZTREONAM 1 GM/NS 50 ML 50 ML IV SCH ×2 (10:24→21:26)
[2020-10-08] MEDS ORDERED: ONDANSETRON HCL INJ 2MG/ML 2ML 2 MG/ML VIAL IV PRN (16:00)
[2020-10-08] MEDS: ENOXAPARIN SOD INJ 40 MG/0.4 ML SYR SC SCH (16:09)
[2020-10-08] MEDS: TRESIBA 10 UNIT SQ SCH (21:00)
[2020-10-08] MEDS: QUETIAPINE FUMARATE 25 MG TAB PO SCH (21:26)
[2020-10-08] MEDS: SIMVASTATIN 40 MG TAB PO SCH (21:26)
[2020-10-08] MEDS: HYDROXYCHLOROQUINE SULFATE 200 MG TAB PO SCH (21:26)
[2020-10-08] MEDS: DONEPEZIL HCL 5 MG TAB PO SCH (21:26)
[2020-10-09] VITALS (8 sets, daily range): BP systolic 103–146; BP diastolic 40–74
[2020-10-09] MEDS: LEVOTHYROXINE SODIUM 100 MCG TAB PO SCH (05:21)
[2020-10-09] MEDS: INSULIN LISPRO 100 UNIT/1 ML 3ML VIAL SQ SCH ×4 (07:30→21:00)
[2020-10-09] MEDS: MECLIZINE HCL 12.5 MG TAB PO SCH ×2 (08:37→17:14)
[2020-10-09] MEDS: PAROXETINE HCL 20 MG TAB PO SCH (08:37)
[2020-10-09] MEDS: ASPIRIN 81 MG ENTERIC COATED PO SCH (08:37)
[2020-10-09] MEDS: DULOXETINE HCL 20 MG DELAYED RELEASE PO SCH ×2 (08:37→17:14)
[2020-10-09] MEDS: FOLIC ACID 1 MG TAB PO SCH ×2 (08:37→17:14)
[2020-10-09] MEDS: AZTREONAM 1 GM/NS 50 ML 50 ML IV SCH ×2 (08:37→22:07)
[2020-10-09] MEDS: SITAGLIPTIN 100 MG TAB PO SCH (08:37)
[2020-10-09] MEDS: METOPROLOL TARTRATE 25 MG TAB PO SCH ×2 (08:37→22:09)
[2020-10-09] MEDS ORDERED: ERGOCALCIFEROL 50,000 UNIT CAP PO SCH (09:00)
[2020-10-09] MEDS: SODIUM CHLORIDE 0.9% 1000ML 1,000 ML IV SCH ×2 (11:28→22:18)
[2020-10-09] MEDS: ENOXAPARIN SOD INJ 40 MG/0.4 ML SYR SC SCH (17:14)
[2020-10-09] MEDS: TRESIBA 10 UNIT SQ SCH (21:00)
[2020-10-09] MEDS: DONEPEZIL HCL 5 MG TAB PO SCH (22:07)
[2020-10-09] MEDS: HYDROXYCHLOROQUINE SULFATE 200 MG TAB PO SCH (22:10)
[2020-10-09] MEDS: SIMVASTATIN 40 MG TAB PO SCH (22:10)
[2020-10-09] MEDS: QUETIAPINE FUMARATE 25 MG TAB PO SCH (22:10)
[2020-10-10] VITALS (7 sets, daily range): BP systolic 126–171; BP diastolic 52–70
[2020-10-10 05:34] LABS: BASOPHILS # (AUTO) 0.1 (0.0-0.1); BASOPHILS % 0.9 % (0.0-1.0); EOSINOPHILS # (AUTO) 0.3 (0.0-0.4); EOSINOPHILS % 4.1 % (0.0-6.0); HEMATOCRIT 34.8 % (34.2-44.1); HEMOGLOBIN 11.3 g/dL (12.0-16.0); LYMPHOCYTES # (AUTO) 1.9 (1.0-3.2); LYMPHOCYTES % 26.1 % (18.0-39.1); MEAN CORPUSCULAR HEMOGLOBIN 33.4 pg (28-32); MEAN CORPUSCULAR HGB CONC 32.5 g/dL (31-35); MONOCYTES # (AUTO) 1.1 (0.2-0.8); MONOCYTES % 14.7 % (4.4-11.3); NEUTROPHILS % 53.5 % (38.7-80.0); PLATELET COUNT 139 x10e3/uL (140-360); RED BLOOD COUNT 3.38 x10e6/uL (3.6-5.1); RED CELL DISTRIBUTION WIDTH 13.8 % (11.7-14.4)
[2020-10-10] MEDS: LEVOTHYROXINE SODIUM 100 MCG TAB PO SCH (05:53)
[2020-10-10 05:55] LABS: ANION GAP 8.6 mmol/L (8-16); CALCIUM 7.9 mg/dL (8.4-10.2); CREATININE, SERUM 1.04 mg/dL (0.57-1.11); POTASSIUM 3.6 mmol/L (3.5-5.1)
[2020-10-10] MEDS: INSULIN LISPRO 100 UNIT/1 ML 3ML VIAL SQ SCH ×4 (07:30→21:00)
[2020-10-10] MEDS: METOPROLOL TARTRATE 25 MG TAB PO SCH ×2 (09:45→21:00)
[2020-10-10] MEDS: SITAGLIPTIN 100 MG TAB PO SCH (09:45)
[2020-10-10] MEDS: PAROXETINE HCL 20 MG TAB PO SCH (09:45)
[2020-10-10] MEDS: AZTREONAM 1 GM/NS 50 ML 50 ML IV SCH ×2 (09:45→21:00)
[2020-10-10] MEDS: DULOXETINE HCL 20 MG DELAYED RELEASE PO SCH ×2 (09:45→17:05)
[2020-10-10] MEDS: MECLIZINE HCL 12.5 MG TAB PO SCH ×2 (09:45→17:05)
[2020-10-10] MEDS: SODIUM CHLORIDE 0.9% 1000ML 1,000 ML IV SCH ×2 (09:45→21:36)
[2020-10-10] MEDS: FOLIC ACID 1 MG TAB PO SCH ×2 (09:45→17:05)
[2020-10-10] MEDS: ASPIRIN 81 MG ENTERIC COATED PO SCH (09:45)
[2020-10-10] MEDS: ENOXAPARIN SOD INJ 40 MG/0.4 ML SYR SC SCH (17:05)
[2020-10-10] MEDS: HYDROXYCHLOROQUINE SULFATE 200 MG TAB PO SCH (21:00)
[2020-10-10] MEDS: QUETIAPINE FUMARATE 25 MG TAB PO SCH (21:00)
[2020-10-10] MEDS: TRESIBA 10 UNIT SQ SCH (21:00)
[2020-10-10] MEDS: SIMVASTATIN 40 MG TAB PO SCH (21:00)
[2020-10-10] MEDS: DONEPEZIL HCL 5 MG TAB PO SCH (21:00)
[2020-10-11 00:51] VITALS: BP 122/52
[2020-10-11 05:50] VITALS: BP 169/78
[2020-10-11] MEDS: SODIUM CHLORIDE 0.9% 1000ML 1,000 ML IV SCH (06:09)
[2020-10-11] MEDS: LEVOTHYROXINE SODIUM 100 MCG TAB PO SCH (06:09)
[2020-10-11] MEDS: INSULIN LISPRO 100 UNIT/1 ML 3ML VIAL SQ SCH ×2 (07:30→11:30)
[2020-10-11 07:57] VITALS: BP 145/62
[2020-10-11] MEDS: FOLIC ACID 1 MG TAB PO SCH (08:41)
[2020-10-11] MEDS: DULOXETINE HCL 20 MG DELAYED RELEASE PO SCH (08:41)
[2020-10-11] MEDS: AZTREONAM 1 GM/NS 50 ML 50 ML IV SCH (08:41)
[2020-10-11] MEDS: MECLIZINE HCL 12.5 MG TAB PO SCH (08:41)
[2020-10-11] MEDS: ASPIRIN 81 MG ENTERIC COATED PO SCH (08:41)
[2020-10-11] MEDS: SITAGLIPTIN 100 MG TAB PO SCH (08:41)
[2020-10-11] MEDS: METOPROLOL TARTRATE 25 MG TAB PO SCH (08:41)
[2020-10-11] MEDS: PAROXETINE HCL 20 MG TAB PO SCH (08:42)
[2020-10-11 08:45] VITALS: BP 145/62
[2020-10-11 12:00] VITALS: BP 171/70
[2020-10-11] MEDS ORDERED: ONDANSETRON HCL 4 MG ORAL DISINTEGRATING TAB PO PRN (13:00)
[2020-10-11] MEDS ORDERED: NIFEDIPINE 10 MG CAP PO NR (15:00)
== END 2020-10-11 15:11 | DRG 689 ==
LOC: ER 18:04 → ERHOLD 19:54 → ICU 22:34 → MED/SURG2 10-08 06:31
PROVIDERS: ADMIT Internal Medicine; ATTEND Internal Medicine
DX: N39.0 Urinary tract infection, site not specified (principal); I21.A1 Myocardial infarction type 2; N17.9 Acute kidney failure, unspecified; R42 Dizziness and giddiness; F32.9 Major depressive disorder, single episode, unspecified; F41.9 Anxiety disorder, unspecified; M06.9 Rheumatoid arthritis, unspecified; E86.0 Dehydration; F03.90 Unspecified dementia, unspecified severity, without behavioral disturbance, psychotic disturbance, mood disturbance, and anxiety; I12.9 Hypertensive chronic kidney disease with stage 1 through stage 4 chronic kidney disease, or unspecified chronic kidney disease; N18.2 Chronic kidney disease, stage 2 (mild); E11.22 Type 2 diabetes mellitus with diabetic chronic kidney disease
CPT/HCPCS: 36415; 70450; 70551; 80048; 80053; 80061; 81001; 82550; 82553; 82948; 84484; 85025; 93005; 93306; 93880; 96361; 97139; 99284; J1650; J2405; J7030; U0002

== ENCOUNTER 2020-12-05 14:15 | Emergency (ER) | payer MEDICARE, BC ==
[~2020-12-05] VITALS: Ht 157.5 cm; Wt 76.2 kg
[2020-12-05 15:42] LABS: BASOPHILS # (AUTO) 0.1 (0.0-0.1); BASOPHILS % 0.9 % (0.0-1.0); EOSINOPHILS # (AUTO) 0.3 (0.0-0.4); EOSINOPHILS % 3.6 % (0.0-6.0); HEMATOCRIT 35.7 % (34.2-44.1); HEMOGLOBIN 11.9 g/dL (12.0-16.0); LYMPHOCYTES # (AUTO) 1.9 (1.0-3.2); LYMPHOCYTES % 24.4 % (18.0-39.1); MEAN CORPUSCULAR HEMOGLOBIN 34.1 pg (28-32); MEAN CORPUSCULAR HGB CONC 33.3 g/dL (31-35); MEAN CORPUSCULAR VOLUME 102.3 fL (81-99); MONOCYTES # (AUTO) 0.9 (0.2-0.8); MONOCYTES % 11.1 % (4.4-11.3); NEUTROPHILS # (AUTO) 4.6 (2.1-6.9); NEUTROPHILS % 59.6 % (38.7-80.0); PLATELET COUNT 86 x10e3/uL (140-360); RED BLOOD COUNT 3.49 x10e6/uL (3.6-5.1); RED CELL DISTRIBUTION WIDTH 13.9 % (11.7-14.4)
[2020-12-05 15:58] LABS: ALBUMIN 3.2 g/dL (3.5-5.0); ALBUMIN/GLOBULIN RATIO 1.2 (0.8-2.0); ANION GAP 15.1 mmol/L (8-16); CALCIUM 8.8 mg/dL (8.4-10.2); CREATININE, SERUM 1.22 mg/dL (0.57-1.11); POTASSIUM 4.1 mmol/L (3.5-5.1)
[2020-12-05 16:00] LABS: CLARITY,URINE HAZY (CLEAR); COLOR,URINE AMBER (YELLOW); KETONES,URINE 1+ (NEGATIVE); LEUKOCYTE ESTERASE ,URINE TRACE (NEGATIVE); NITRITE,URINE POSITIVE (NEGATIVE); PROTEIN,URINE DIPSTICK >=300 (NEGATIVE); URINE UROBILINOGEN 0.2 mg/dL (0.2 - 1)
[2020-12-05 16:20] LABS: AMORPHOUS SEDIMENT,URINE MODERATE (FEW); BACTERIA,URINE MANY /HPF; WBC,URINE (MAN) 21-50 /HPF (0-5)
[2020-12-05] MEDS ORDERED: CEFTRIAXONE SOD 1 GM VIAL IV STA (16:35)
[2020-12-05] MEDS ORDERED: CEPHALEXIN500 MG PO (16:37)
[2020-12-05] MEDS ORDERED: CEFTRIAXONE SOD 1 GM in SODIUM CHLORIDE 0.9% 50ML 50 ML IV ONE (16:45)
== END 2020-12-05 17:15 | disposition home or self-care (01) ==
LOC: ER 14:33
DX: S01.111A Laceration without foreign body of right eyelid and periocular area, initial encounter (principal); N39.0 Urinary tract infection, site not specified; I45.10 Unspecified right bundle-branch block; I10 Essential (primary) hypertension; E11.9 Type 2 diabetes mellitus without complications; Z79.4 Long term (current) use of insulin; E78.5 Hyperlipidemia, unspecified; I25.2 Old myocardial infarction; Z79.899 Other long term (current) drug therapy; Z88.5 Allergy status to narcotic agent; Z88.0 Allergy status to penicillin; Z91.040 Latex allergy status; W19.XXXA Unspecified fall, initial encounter; Y92.009 Unspecified place in unspecified non-institutional (private) residence as the place of occurrence of the external cause
CPT/HCPCS: 36415; 70450; 70486; 71045; 72125; 72170; 80053; 81001; 83880; 84484; 85025; 93005; 99284

== ENCOUNTER → 2020-12-12 | Outpatient (CLI) | payer MEDICARE, BC ==
[~2020-12-12] MED LIST changes: +CEPHALEXIN500 MG PO
[2020-12-12 15:42] LABS: BASOPHILS # (AUTO) 0.1 (0.0-0.1); EOSINOPHILS # (AUTO) 0.3 (0.0-0.4); EOSINOPHILS % 3.8 % (0.0-6.0); HEMATOCRIT 33.8 % (34.2-44.1); HEMOGLOBIN 11.1 g/dL (12.0-16.0); LYMPHOCYTES # (AUTO) 1.9 (1.0-3.2); LYMPHOCYTES % 21.5 % (18.0-39.1); MEAN CORPUSCULAR HEMOGLOBIN 33.9 pg (28-32); MEAN CORPUSCULAR HGB CONC 32.8 g/dL (31-35); MEAN CORPUSCULAR VOLUME 103.4 fL (81-99); MONOCYTES # (AUTO) 1.3 (0.2-0.8); MONOCYTES % 14.6 % (4.4-11.3); NEUTROPHILS # (AUTO) 5.2 (2.1-6.9); NEUTROPHILS % 58.2 % (38.7-80.0); PLATELET COUNT 74 x10e3/uL (140-360); RED BLOOD COUNT 3.27 x10e6/uL (3.6-5.1); RED CELL DISTRIBUTION WIDTH 14.1 % (11.7-14.4)
[2020-12-12 16:05] LABS: ALBUMIN 3.3 g/dL (3.5-5.0); ALBUMIN/GLOBULIN RATIO 1.2 (0.8-2.0); ANION GAP 14.3 mmol/L (8-16); CALCIUM 8.6 mg/dL (8.4-10.2); CREATININE, SERUM 1.36 mg/dL (0.57-1.11); POTASSIUM 4.3 mmol/L (3.5-5.1)
== END ==
LOC: CT 14:48
PROVIDERS: ATTEND Internal Medicine
DX: R41.82 Altered mental status, unspecified (principal)
CPT/HCPCS: 36415; 70450; 80053; 85025

== ENCOUNTER 2020-12-18 10:34 | Inpatient (IN) | payer MEDICARE, BC ==
[~2020-12-18] VITALS: Ht 157.5 cm; Wt 76.2 kg
[2020-12-18] MEDS ORDERED: SODIUM CHLORIDE 0.9% 500ML 500 ML IV ONE (11:00)
[2020-12-18 11:41] LABS: BASOPHILS # (AUTO) 0.1 (0.0-0.1); BASOPHILS % 0.8 % (0.0-1.0); EOSINOPHILS # (AUTO) 0.2 (0.0-0.4); EOSINOPHILS % 2.5 % (0.0-6.0); HEMATOCRIT 33.6 % (34.2-44.1); HEMOGLOBIN 11.3 g/dL (12.0-16.0); LYMPHOCYTES % 23.7 % (18.0-39.1); MEAN CORPUSCULAR HEMOGLOBIN 34.6 pg (28-32); MEAN CORPUSCULAR HGB CONC 33.6 g/dL (31-35); MEAN CORPUSCULAR VOLUME 102.8 fL (81-99); MONOCYTES # (AUTO) 0.6 (0.2-0.8); MONOCYTES % 7.6 % (4.4-11.3); NEUTROPHILS # (AUTO) 5.4 (2.1-6.9); NEUTROPHILS % 64.8 % (38.7-80.0); PLATELET COUNT 82 x10e3/uL (140-360); RED BLOOD COUNT 3.27 x10e6/uL (3.6-5.1)
[2020-12-18 12:07] LABS: ALBUMIN 3.3 g/dL (3.5-5.0); ALBUMIN/GLOBULIN RATIO 1.1 (0.8-2.0); ANION GAP 12.5 mmol/L (8-16); CALCIUM 8.6 mg/dL (8.4-10.2); CREATININE, SERUM 1.3 mg/dL (0.57-1.11); MAGNESIUM 2.1 MG/DL (1.3-2.1); POTASSIUM 3.5 mmol/L (3.5-5.1)
[2020-12-18 12:15] LABS: CLARITY,URINE SL CLOUDY (CLEAR); COLOR,URINE YELLOW (YELLOW)
[2020-12-18 12:16] LABS: KETONES,URINE NEGATIVE (NEGATIVE); LEUKOCYTE ESTERASE ,URINE NEGATIVE (NEGATIVE); NITRITE,URINE NEGATIVE (NEGATIVE); PROTEIN,URINE DIPSTICK 2+ (NEGATIVE); URINE UROBILINOGEN 1 mg/dL (0.2 - 1)
[2020-12-18 12:26] LABS: THYROID STIMULATING HORMONE 3.061 uIU/mL (0.350-4.940)
[2020-12-18 12:27] LABS: BACTERIA,URINE RARE /HPF; EPITHELIAL CELLS,URINE FEW /LPF; RBC,URINE 0-5 /HPF (0-5); WBC,URINE (MAN) 0-5 /HPF (0-5)
[2020-12-18] MEDS ORDERED: ASPIRIN 81 MG CHEW TAB PO NR (13:25)
[2020-12-18] MEDS ORDERED: ONDANSETRON HCL INJ 2MG/ML 2ML 2 MG/ML VIAL IV PRN ×2 (13:30→14:15)
[2020-12-18] MEDS ORDERED: DEXTROSE 50% SYRINGE 50 ML IV PRN ×2 (13:30→14:15)
[2020-12-18] MEDS ORDERED: DIPHENHYDRAMINE HCL 25 MG CAP PO PRN (14:15)
[2020-12-18] MEDS ORDERED: POTASSIUM CHLORIDE 20 MEQ TAB CR PO PRN (14:15)
[2020-12-18] MEDS ORDERED: ALBUTEROL/IPRATROPIUM 3 ML NEB NEB PRN (14:15)
[2020-12-18] MEDS ORDERED: BENZONATATE 100 MG CAP PO PRN (14:15)
[2020-12-18] MEDS ORDERED: ACETAMINOPHEN 325 MG TAB PO PRN (14:15)
[2020-12-18] MEDS ORDERED: DOCUSATE SODIUM 100 MG CAP PO PRN (14:15)
[2020-12-18] MEDS ORDERED: LIDOCAINE 4% PATCH TP PRN (14:15)
[2020-12-18] MEDS: INSULIN LISPRO 100 UNIT/1 ML 3ML VIAL SQ SCH ×2 (16:30→21:00)
[2020-12-18 16:47] VITALS: BP 172/55
[2020-12-18 16:56] VITALS: BP 172/55
[2020-12-18 17:06] VITALS: BP 172/55
[2020-12-18] MEDS ORDERED: XIGDUO XR 10 M1 EACH (17:14)
[2020-12-18] MEDS ORDERED: CYMBALTA30 MG (17:32)
[2020-12-18] MEDS ORDERED: LEVOTHYROXINE112 MCG PO (17:34)
[2020-12-18] MEDS ORDERED: GLIMEPIRIDE2 MG PO (17:39)
[2020-12-18] MEDS ORDERED: FERROUS SULFAT324 MG PO (17:40)
[2020-12-18] MEDS ORDERED: METHOTREXATE2.5 MG PO (17:43)
[2020-12-18] MEDS ORDERED: METOPROLOL TART25 MG PO (17:44)
[2020-12-18] MEDS ORDERED: ALENDRONATE SOD70 MG PO (17:44)
[2020-12-18] MEDS ORDERED: LISINOPRIL20 MG PO (17:45)
[2020-12-18] MEDS ORDERED: DEPAKOTE ER250 MG PO (17:47)
[2020-12-18] MEDS ORDERED: AMARYL2 MG PO (17:49)
[2020-12-18] MEDS ORDERED: GLIMEPIRIDE4 MG PO (17:51)
[2020-12-18] MEDS ORDERED: ASPIRIN81 MG PO (17:52)
[2020-12-18] MEDS ORDERED: PROCARDIA XL30 MG (17:54)
[2020-12-18] MEDS ORDERED: ZYRTEC10 M3 PO (17:54)
[2020-12-18] MEDS ORDERED: PROCARDIA10 MG (17:54)
[2020-12-18] MEDS ORDERED: HYDROXYCHLOROQUINE PO (17:57)
[2020-12-18] MEDS: DEXTROSE 5%/0.9% SOD CHL 1,000 ML IV SCH (18:10)
[2020-12-18 20:00] VITALS: BP 161/68
[2020-12-18 21:00] VITALS: BP 161/68
[2020-12-18] MEDS: ATORVASTATIN 20 MG TAB PO SCH (21:00)
[2020-12-18] MEDS ORDERED: MELATONIN 5 MG TABLET PO PRN (21:00)
[2020-12-18] MEDS ORDERED: VALSARTAN-HCTZ1 EAC1 PO (21:07)
[2020-12-18] MEDS ORDERED: MECLIZINE HCL12.5 MG PO (21:59)
[2020-12-18] MEDS ORDERED: TOUJEO MAX300 UNIT/1 SQ (21:59)
[2020-12-18] MEDS ORDERED: LOPRESSOR25 MG PO (21:59)
[2020-12-18] MEDS ORDERED: SYNTHROID125 MCG PO (22:19)
[2020-12-19] VITALS (7 sets, daily range): BP systolic 107–155; BP diastolic 48–75
[2020-12-19] MEDS: DEXTROSE 5%/0.9% SOD CHL 1,000 ML IV SCH ×2 (04:05→18:06)
[2020-12-19 05:44] LABS: BASOPHILS # (AUTO) 0.1 (0.0-0.1); BASOPHILS % 1.1 % (0.0-1.0); EOSINOPHILS # (AUTO) 0.3 (0.0-0.4); EOSINOPHILS % 4.1 % (0.0-6.0); HEMATOCRIT 31.9 % (34.2-44.1); HEMOGLOBIN 10.7 g/dL (12.0-16.0); LYMPHOCYTES # (AUTO) 1.9 (1.0-3.2); LYMPHOCYTES % 27.9 % (18.0-39.1); MEAN CORPUSCULAR HEMOGLOBIN 34.3 pg (28-32); MEAN CORPUSCULAR HGB CONC 33.5 g/dL (31-35); MEAN CORPUSCULAR VOLUME 102.2 fL (81-99); MONOCYTES # (AUTO) 0.8 (0.2-0.8); MONOCYTES % 12.5 % (4.4-11.3); NEUTROPHILS # (AUTO) 3.6 (2.1-6.9); NEUTROPHILS % 53.9 % (38.7-80.0); PLATELET COUNT 68 x10e3/uL (140-360); RED BLOOD COUNT 3.12 x10e6/uL (3.6-5.1); RED CELL DISTRIBUTION WIDTH 14.2 % (11.7-14.4)
[2020-12-19 06:01] LABS: ALBUMIN 2.7 g/dL (3.5-5.0); ALBUMIN/GLOBULIN RATIO 1.1 (0.8-2.0); CALCIUM 7.8 mg/dL (8.4-10.2); CHOL/HDL RATIO 2.7 (3.0-3.6)
[2020-12-19 06:36] LABS: MAGNESIUM 1.9 MG/DL (1.3-2.1); PHOSPHORUS 3.4 MG/DL (2.3-4.7)
[2020-12-19 06:56] LABS: THYROID STIMULATING HORMONE 1.62 uIU/mL (0.350-4.940)
[2020-12-19] MEDS: PANTOPRAZOLE SOD 40 MG TABEC PO SCH (07:30)
[2020-12-19] MEDS: INSULIN LISPRO 100 UNIT/1 ML 3ML VIAL SQ SCH ×4 (07:30→21:27)
[2020-12-19] MEDS ORDERED: ONDANSETRON HCL 4 MG ORAL DISINTEGRATING TAB PO PRN (07:45)
[2020-12-19] MEDS ORDERED: ASPIRIN 81 MG ENTERIC COATED PO SCH (09:00)
[2020-12-19] MEDS: ASPIRIN 325 MG TAB PO SCH (09:00)
[2020-12-19] MEDS: ATORVASTATIN 20 MG TAB PO SCH (21:23)
[2020-12-20] VITALS (8 sets, daily range): BP systolic 122–163; BP diastolic 47–73
[2020-12-20] MEDS: PANTOPRAZOLE SOD 40 MG TABEC PO SCH (07:30)
[2020-12-20] MEDS: INSULIN LISPRO 100 UNIT/1 ML 3ML VIAL SQ SCH ×4 (07:30→21:24)
[2020-12-20] MEDS: SITAGLIPTIN 100 MG TAB PO SCH (09:00)
[2020-12-20] MEDS: DULOXETINE HCL 30 MG DELAYED RELEASE PO SCH (09:00)
[2020-12-20] MEDS: LORATADINE 10 MG TAB PO SCH (09:00)
[2020-12-20] MEDS: MECLIZINE HCL 12.5 MG TAB PO SCH ×3 (09:00→21:22)
[2020-12-20] MEDS: ASPIRIN 325 MG TAB PO SCH (09:00)
[2020-12-20] MEDS: DIVALPROEX SODIUM 250 MG TAB...DR PO SCH ×2 (11:16→18:42)
[2020-12-20] MEDS: FOLIC ACID 1 MG TAB PO SCH ×2 (11:16→18:42)
[2020-12-20] MEDS: RIVAROXABAN 15 MG TABLET PO SCH (16:44)
[2020-12-20] MEDS: HYDROXYCHLOROQUINE SULFATE 200 MG TAB PO SCH (21:22)
[2020-12-20] MEDS: ATORVASTATIN 20 MG TAB PO SCH (21:22)
[2020-12-20] MEDS: DONEPEZIL HCL 5 MG TAB PO SCH (21:22)
[2020-12-21] VITALS (8 sets, daily range): BP systolic 142–161; BP diastolic 50–77
[2020-12-21] MEDS: LEVOTHYROXINE SODIUM 125 MCG TAB PO SCH (05:31)
[2020-12-21 05:43] LABS: BASOPHILS % 0.4 % (0.0-1.0); EOSINOPHILS # (AUTO) 0.3 (0.0-0.4); EOSINOPHILS % 3.3 % (0.0-6.0); HEMATOCRIT 32.1 % (34.2-44.1); HEMOGLOBIN 10.5 g/dL (12.0-16.0); LYMPHOCYTES # (AUTO) 2.5 (1.0-3.2); LYMPHOCYTES % 25.2 % (18.0-39.1); MEAN CORPUSCULAR HGB CONC 32.7 g/dL (31-35); MEAN CORPUSCULAR VOLUME 103.9 fL (81-99); MONOCYTES # (AUTO) 1.2 (0.2-0.8); MONOCYTES % 12.7 % (4.4-11.3); NEUTROPHILS # (AUTO) 5.6 (2.1-6.9); NEUTROPHILS % 57.7 % (38.7-80.0); PLATELET COUNT 68 x10e3/uL (140-360); RED BLOOD COUNT 3.09 x10e6/uL (3.6-5.1); RED CELL DISTRIBUTION WIDTH 14.9 % (11.7-14.4)
[2020-12-21 06:02] LABS: ANION GAP 11.3 mmol/L (8-16); CALCIUM 8.1 mg/dL (8.4-10.2); CREATININE, SERUM 1.19 mg/dL (0.57-1.11); POTASSIUM 3.3 mmol/L (3.5-5.1)
[2020-12-21] MEDS: INSULIN LISPRO 100 UNIT/1 ML 3ML VIAL SQ SCH ×4 (07:30→20:44)
[2020-12-21] MEDS: PANTOPRAZOLE SOD 40 MG TABEC PO SCH (08:22)
[2020-12-21] MEDS: FOLIC ACID 1 MG TAB PO SCH ×2 (08:23→15:48)
[2020-12-21] MEDS: RIVAROXABAN 15 MG TABLET PO SCH (08:23)
[2020-12-21] MEDS: DIVALPROEX SODIUM 250 MG TAB...DR PO SCH ×2 (08:23→15:48)
[2020-12-21] MEDS: LORATADINE 10 MG TAB PO SCH (08:23)
[2020-12-21] MEDS: MECLIZINE HCL 12.5 MG TAB PO SCH ×3 (08:23→21:50)
[2020-12-21] MEDS: DULOXETINE HCL 30 MG DELAYED RELEASE PO SCH (08:23)
[2020-12-21] MEDS: SITAGLIPTIN 100 MG TAB PO SCH (08:23)
[2020-12-21] MEDS ORDERED: POTASSIUM CHLORIDE 10MEQ EA PO ONE (09:00)
[2020-12-21] MEDS: ATORVASTATIN 20 MG TAB PO SCH (21:50)
[2020-12-21] MEDS: HYDROXYCHLOROQUINE SULFATE 200 MG TAB PO SCH (21:50)
[2020-12-21] MEDS: DONEPEZIL HCL 5 MG TAB PO SCH (21:50)
[2020-12-22] VITALS (7 sets, daily range): BP systolic 124–156; BP diastolic 51–70
[2020-12-22] MEDS: LEVOTHYROXINE SODIUM 125 MCG TAB PO SCH (05:59)
[2020-12-22] MEDS: PANTOPRAZOLE SOD 40 MG TABEC PO SCH (05:59)
[2020-12-22] MEDS: INSULIN LISPRO 100 UNIT/1 ML 3ML VIAL SQ SCH ×4 (07:30→21:00)
[2020-12-22] MEDS: SITAGLIPTIN 100 MG TAB PO SCH (08:26)
[2020-12-22] MEDS: DULOXETINE HCL 30 MG DELAYED RELEASE PO SCH (08:26)
[2020-12-22] MEDS: FOLIC ACID 1 MG TAB PO SCH ×2 (08:26→18:19)
[2020-12-22] MEDS: DIVALPROEX SODIUM 250 MG TAB...DR PO SCH ×2 (08:26→18:19)
[2020-12-22] MEDS: MECLIZINE HCL 12.5 MG TAB PO SCH ×3 (08:26→21:55)
[2020-12-22] MEDS: RIVAROXABAN 10 MG TABLET PO SCH (08:26)
[2020-12-22] MEDS: LORATADINE 10 MG TAB PO SCH (08:26)
[2020-12-22] MEDS ORDERED: QUETIAPINE FUMARATE 25 MG TAB PO ONE (15:15)
[2020-12-22] MEDS ORDERED: QUETIAPINE FUMARATE 25 MG TAB PO SCH (21:00)
[2020-12-22] MEDS ORDERED: ATORVASTATIN 10 MG TAB PO SCH (21:00)
[2020-12-22] MEDS: DONEPEZIL HCL 5 MG TAB PO SCH (21:50)
[2020-12-22] MEDS: HYDROXYCHLOROQUINE SULFATE 200 MG TAB PO SCH (21:50)
[2020-12-23] VITALS: BP 141/53
[2020-12-23] MEDS: CEFUROXIME AXETIL 250 MG TAB PO SCH ×2 (00:03→11:20)
[2020-12-23 04:00] VITALS: BP 120/57
[2020-12-23 05:31] LABS: BASOPHILS % 0.5 % (0.0-1.0); EOSINOPHILS # (AUTO) 0.4 (0.0-0.4); EOSINOPHILS % 4.7 % (0.0-6.0); HEMATOCRIT 31.6 % (34.2-44.1); HEMOGLOBIN 10.3 g/dL (12.0-16.0); LYMPHOCYTES # (AUTO) 2.1 (1.0-3.2); LYMPHOCYTES % 25.6 % (18.0-39.1); MEAN CORPUSCULAR HEMOGLOBIN 34.2 pg (28-32); MEAN CORPUSCULAR HGB CONC 32.6 g/dL (31-35); MONOCYTES # (AUTO) 1.5 (0.2-0.8); MONOCYTES % 17.9 % (4.4-11.3); NEUTROPHILS # (AUTO) 4.1 (2.1-6.9); NEUTROPHILS % 50.7 % (38.7-80.0); PLATELET COUNT 88 x10e3/uL (140-360); RED BLOOD COUNT 3.01 x10e6/uL (3.6-5.1); RED CELL DISTRIBUTION WIDTH 15.4 % (11.7-14.4)
[2020-12-23 05:50] LABS: ANION GAP 11.9 mmol/L (8-16); CALCIUM 8.4 mg/dL (8.4-10.2); CREATININE, SERUM 1.28 mg/dL (0.57-1.11); POTASSIUM 3.9 mmol/L (3.5-5.1)
[2020-12-23] MEDS: LEVOTHYROXINE SODIUM 125 MCG TAB PO SCH (06:05)
[2020-12-23] MEDS: INSULIN LISPRO 100 UNIT/1 ML 3ML VIAL SQ SCH ×2 (07:30→11:30)
[2020-12-23 08:10] VITALS: BP 126/46
[2020-12-23] MEDS: PANTOPRAZOLE SOD 40 MG TABEC PO SCH (11:18)
[2020-12-23] MEDS: MECLIZINE HCL 12.5 MG TAB PO SCH (11:19)
[2020-12-23] MEDS: LORATADINE 10 MG TAB PO SCH (11:20)
[2020-12-23] MEDS: RIVAROXABAN 10 MG TABLET PO SCH (11:21)
[2020-12-23] MEDS: DIVALPROEX SODIUM 250 MG TAB...DR PO SCH (11:21)
[2020-12-23] MEDS: DULOXETINE HCL 30 MG DELAYED RELEASE PO SCH (11:21)
[2020-12-23] MEDS: FOLIC ACID 1 MG TAB PO SCH (11:21)
[2020-12-23 11:34] VITALS: BP 126/46
[2020-12-23 11:56] VITALS: BP 138/54
[2020-12-23 16:28] VITALS: BP 130/60
== END 2020-12-23 16:40 | DRG 65 ==
LOC: ER 10:57 → ERHOLD 13:28 → MED/SURG 16:42
PROVIDERS: ADMIT Internal Medicine; ATTEND Internal Medicine
DX: I63.441 Cerebral infarction due to embolism of right cerebellar artery (principal); F01.51 Vascular dementia, unspecified severity, with behavioral disturbance; R47.01 Aphasia; E11.9 Type 2 diabetes mellitus without complications; I10 Essential (primary) hypertension; D69.6 Thrombocytopenia, unspecified; Z87.440 Personal history of urinary (tract) infections; Z88.5 Allergy status to narcotic agent; Z88.0 Allergy status to penicillin; Z91.040 Latex allergy status; E78.5 Hyperlipidemia, unspecified; E03.9 Hypothyroidism, unspecified; Z83.3 Family history of diabetes mellitus; Z82.49 Family history of ischemic heart disease and other diseases of the circulatory system; I63.442 Cerebral infarction due to embolism of left cerebellar artery; E87.6 Hypokalemia; E88.09 Other disorders of plasma-protein metabolism, not elsewhere classified; E77.8 Other disorders of glycoprotein metabolism; D69.59 Other secondary thrombocytopenia; T45.1X5A Adverse effect of antineoplastic and immunosuppressive drugs, initial encounter; E53.8 Deficiency of other specified B group vitamins; M06.9 Rheumatoid arthritis, unspecified; Z79.82 Long term (current) use of aspirin; Z79.84 Long term (current) use of oral hypoglycemic drugs
CPT/HCPCS: 36415; 51700; 70450; 70544; 70547; 70551; 71045; 76705; 80048; 80053; 80061; 81001; 82140; 82550; 82553; 82607; 82948; 83036; 83735; 84100; 84443; 84484; 85025; 87040; 87086; 93005; 93306; 93880; 97139; 99251; 99284; J7040; J7042; J7799

== ENCOUNTER 2021-01-19 20:26 | Emergency (ER) | payer MEDICARE, BC ==
[~2021-01-19] VITALS: Ht 309.9 cm; Wt 76.2 kg
[~2021-01-19 20:26] MED LIST changes: +AMARYL2 MG PO; +ASPIRIN81 MG PO; +CYMBALTA30 MG; +DEPAKOTE ER250 MG PO; +FERROUS SULFAT324 MG PO; +GLIMEPIRIDE2 MG PO; +GLIMEPIRIDE4 MG PO; +HYDROXYCHLOROQUINE PO; +LISINOPRIL20 MG PO; +LOPRESSOR25 MG PO; +METOPROLOL TART25 MG PO; +PROCARDIA XL30 MG; +PROCARDIA10 MG; +SYNTHROID125 MCG PO; +TOUJEO MAX300 UNIT/1 SQ; +VALSARTAN-HCTZ1 EAC1 PO; +XIGDUO XR 10 M1 EACH; +ZYRTEC10 M3 PO
[2021-01-19 23:10] VITALS: BP 161/68
== END 2021-01-20 00:14 ==
LOC: ER 20:50
DX: S00.83XA Contusion of other part of head, initial encounter (principal); W19.XXXA Unspecified fall, initial encounter; Y92.128 Other place in nursing home as the place of occurrence of the external cause; Z79.01 Long term (current) use of anticoagulants; F03.90 Unspecified dementia, unspecified severity, without behavioral disturbance, psychotic disturbance, mood disturbance, and anxiety; E11.9 Type 2 diabetes mellitus without complications; I10 Essential (primary) hypertension; E78.5 Hyperlipidemia, unspecified; E03.9 Hypothyroidism, unspecified; I25.2 Old myocardial infarction
CPT/HCPCS: 36415; 70450; 72125; 93005; 99284

== ENCOUNTER 2021-02-12 09:23 | Inpatient (IN) | payer MEDICARE, BC ==
[~2021-02-12] VITALS: Ht 309.9 cm; Wt 64.0 kg
[2021-02-12 09:53] LABS: BASOPHILS # (AUTO) 0.1 (0.0-0.1); BASOPHILS % 0.7 % (0.0-1.0); EOSINOPHILS # (AUTO) 0.2 (0.0-0.4); EOSINOPHILS % 3.6 % (0.0-6.0); HEMATOCRIT 41.3 % (34.2-44.1); HEMOGLOBIN 13.4 g/dL (12.0-16.0); LYMPHOCYTES # (AUTO) 1.9 (1.0-3.2); LYMPHOCYTES % 28.4 % (18.0-39.1); MEAN CORPUSCULAR HEMOGLOBIN 34.1 pg (28-32); MEAN CORPUSCULAR HGB CONC 32.4 g/dL (31-35); MEAN CORPUSCULAR VOLUME 105.1 fL (81-99); MONOCYTES # (AUTO) 0.7 (0.2-0.8); MONOCYTES % 10.9 % (4.4-11.3); NEUTROPHILS # (AUTO) 3.8 (2.1-6.9); NEUTROPHILS % 56.1 % (38.7-80.0); PLATELET COUNT 69 x10e3/uL (140-360); RED BLOOD COUNT 3.93 x10e6/uL (3.6-5.1); RED CELL DISTRIBUTION WIDTH 13.3 % (11.7-14.4)
[2021-02-12 10:55] LABS: INR 1.06
[2021-02-12 10:56] LABS: PARTIAL THROMBOPLASTIN TIME 34.6 seconds (23.8-35.5)
[2021-02-12 11:02] LABS: ALBUMIN/GLOBULIN RATIO 0.9 (0.8-2.0); ANION GAP 16.2 mmol/L (8-16); CALCIUM 8.8 mg/dL (8.4-10.2); CREATININE, SERUM 1.43 mg/dL (0.57-1.11); MAGNESIUM 1.6 MG/DL (1.3-2.1); POTASSIUM 4.2 mmol/L (3.5-5.1)
[2021-02-12 11:09] LABS: CREATINE KINASE MB 4.9 ng/mL (0-5.0)
[2021-02-12] MEDS ORDERED: VITAMIN B-12100 MCG PO (11:43)
[2021-02-12] MEDS ORDERED: PANTOPRAZOLE SO40 MG PO (11:43)
[2021-02-12] MEDS ORDERED: NOVOLIN R100 UNIT/1 (11:43)
[2021-02-12] MEDS ORDERED: VITAMIN B-1100 M1 PO (11:43)
[2021-02-12] MEDS ORDERED: MIRTAZAPINE7.5 MG PO (11:43)
[2021-02-12] MEDS ORDERED: XARELTO10 MG PO (11:43)
[2021-02-12] MEDS ORDERED: ASPIRIN 81 MG CHEW TAB PO ONE (11:45)
[2021-02-12] MEDS ORDERED: METFORMIN HCL500 MG PO (11:46)
[2021-02-12] MEDS ORDERED: LIDOPATCH1 EACH TOP (11:46)
[2021-02-12 19:11] LABS: CREATINE KINASE MB 4.3 ng/mL (0-5.0)
[2021-02-12 23:30] VITALS: BP 129/58
[2021-02-13] VITALS (7 sets, daily range): BP systolic 144–156; BP diastolic 61–71
[2021-02-13] MEDS ORDERED: DEXTROSE 50% SYRINGE 50 ML IV PRN
[2021-02-13 04:41] LABS: BASOPHILS # (AUTO) 0.1 (0.0-0.1); BASOPHILS % 1.1 % (0.0-1.0); EOSINOPHILS # (AUTO) 0.2 (0.0-0.4); EOSINOPHILS % 3.3 % (0.0-6.0); HEMATOCRIT 40.5 % (34.2-44.1); HEMOGLOBIN 12.7 g/dL (12.0-16.0); LYMPHOCYTES # (AUTO) 2.2 (1.0-3.2); LYMPHOCYTES % 29.8 % (18.0-39.1); MEAN CORPUSCULAR HEMOGLOBIN 33.2 pg (28-32); MEAN CORPUSCULAR HGB CONC 31.4 g/dL (31-35); MONOCYTES # (AUTO) 0.8 (0.2-0.8); MONOCYTES % 11.3 % (4.4-11.3); NEUTROPHILS % 54.2 % (38.7-80.0); PLATELET COUNT 68 x10e3/uL (140-360); RED BLOOD COUNT 3.82 x10e6/uL (3.6-5.1); RED CELL DISTRIBUTION WIDTH 13.3 % (11.7-14.4)
[2021-02-13 05:03] LABS: ALBUMIN/GLOBULIN RATIO 0.9 (0.8-2.0); CALCIUM 8.9 mg/dL (8.4-10.2); CHOL/HDL RATIO 4.6 (3.0-3.6); CREATININE, SERUM 1.31 mg/dL (0.57-1.11)
[2021-02-13 05:29] LABS: CREATINE KINASE MB 4.6 ng/mL (0-5.0)
[2021-02-13] MEDS: PANTOPRAZOLE SOD 40 MG TABEC PO SCH (07:30)
[2021-02-13] MEDS: INSULIN LISPRO 100 UNIT/1 ML 3ML VIAL SQ SCH ×4 (07:30→20:32)
[2021-02-13] MEDS: LEVOTHYROXINE SODIUM 125 MCG TAB PO SCH (07:30)
[2021-02-13] MEDS: FOLIC ACID 1 MG TAB PO SCH ×2 (08:40→17:00)
[2021-02-13] MEDS: DIVALPROEX SODIUM 250 MG TAB...DR PO SCH ×2 (08:40→17:00)
[2021-02-13] MEDS: THIAMINE HCL 100 MG TAB PO SCH (08:40)
[2021-02-13] MEDS: LIDOCAINE 4% PATCH TP SCH (08:40)
[2021-02-13] MEDS: CYANOCOBALAMIN 1,000 MCG TAB PO SCH (08:40)
[2021-02-13] MEDS ORDERED: ASPIRIN 81 MG ENTERIC COATED PO SCH (09:00)
[2021-02-13] MEDS ORDERED: CYANOCOBALAMIN 100 MCG PO SCH (09:00)
[2021-02-13] MEDS ORDERED: RIVAROXABAN 10 MG TABLET PO SCH (09:30)
[2021-02-13] MEDS: CEFTRIAXONE 1 GM in SODIUM CHLORIDE 0.9% 50ML 50 ML IV SCH (10:25)
[2021-02-13 12:33] LABS: CLARITY,URINE CLEAR (CLEAR); COLOR,URINE YELLOW (YELLOW); KETONES,URINE 1+ (NEGATIVE); LEUKOCYTE ESTERASE ,URINE NEGATIVE (NEGATIVE); NITRITE,URINE NEGATIVE (NEGATIVE); PROTEIN,URINE DIPSTICK 2+ (NEGATIVE); URINE UROBILINOGEN 0.2 mg/dL (0.2 - 1)
[2021-02-13 12:46] LABS: BACTERIA,URINE FEW /HPF; EPITHELIAL CELLS,URINE FEW /LPF; RBC,URINE 0-5 /HPF (0-5); TRANSITIONAL EPI CELLS,URINE RARE
[2021-02-13 14:16] LABS: CREATINE KINASE MB 4.6 ng/mL (0-5.0)
[2021-02-13] MEDS: DONEPEZIL HCL 5 MG TAB PO SCH (20:36)
[2021-02-13] MEDS: MIRTAZAPINE 15 MG TAB PO SCH (20:36)
[2021-02-14] VITALS (8 sets, daily range): BP systolic 120–156; BP diastolic 54–81
[2021-02-14 06:04] LABS: BASOPHILS # (AUTO) 0.1 (0.0-0.1); BASOPHILS % 0.4 % (0.0-1.0); EOSINOPHILS # (AUTO) 0.1 (0.0-0.4); EOSINOPHILS % 0.5 % (0.0-6.0); HEMATOCRIT 37.7 % (34.2-44.1); HEMOGLOBIN 12.2 g/dL (12.0-16.0); LYMPHOCYTES # (AUTO) 2.1 (1.0-3.2); LYMPHOCYTES % 16.5 % (18.0-39.1); MEAN CORPUSCULAR HEMOGLOBIN 33.7 pg (28-32); MEAN CORPUSCULAR HGB CONC 32.4 g/dL (31-35); MEAN CORPUSCULAR VOLUME 104.1 fL (81-99); MONOCYTES # (AUTO) 1.1 (0.2-0.8); MONOCYTES % 8.8 % (4.4-11.3); NEUTROPHILS # (AUTO) 9.5 (2.1-6.9); NEUTROPHILS % 73.5 % (38.7-80.0); PLATELET COUNT 71 x10e3/uL (140-360); RED BLOOD COUNT 3.62 x10e6/uL (3.6-5.1); RED CELL DISTRIBUTION WIDTH 13.1 % (11.7-14.4)
[2021-02-14 06:43] LABS: ALBUMIN 2.7 g/dL (3.5-5.0); ALBUMIN/GLOBULIN RATIO 0.8 (0.8-2.0); ANION GAP 11.8 mmol/L (8-16); CALCIUM 8.5 mg/dL (8.4-10.2); CREATININE, SERUM 1.07 mg/dL (0.57-1.11); POTASSIUM 3.8 mmol/L (3.5-5.1)
[2021-02-14] MEDS: PANTOPRAZOLE SOD 40 MG TABEC PO SCH (08:03)
[2021-02-14] MEDS: LEVOTHYROXINE SODIUM 125 MCG TAB PO SCH (08:03)
[2021-02-14] MEDS: CYANOCOBALAMIN 1,000 MCG TAB PO SCH (08:04)
[2021-02-14] MEDS: FOLIC ACID 1 MG TAB PO SCH ×2 (08:04→16:52)
[2021-02-14] MEDS: DIVALPROEX SODIUM 250 MG TAB...DR PO SCH ×2 (08:04→16:52)
[2021-02-14] MEDS: INSULIN LISPRO 100 UNIT/1 ML 3ML VIAL SQ SCH ×4 (08:04→20:51)
[2021-02-14] MEDS: THIAMINE HCL 100 MG TAB PO SCH (08:04)
[2021-02-14] MEDS: CEFTRIAXONE 1 GM in SODIUM CHLORIDE 0.9% 50ML 50 ML IV SCH ×2 (08:15→11:27)
[2021-02-14] MEDS: LIDOCAINE 4% PATCH TP SCH (08:19)
[2021-02-14] MEDS: METOPROLOL SUCCINATE 25 MG TAB XL PO SCH (12:19)
[2021-02-14] MEDS: DONEPEZIL HCL 5 MG TAB PO SCH (21:03)
[2021-02-14] MEDS: MIRTAZAPINE 15 MG TAB PO SCH (21:03)
[2021-02-15] VITALS: BP 153/65
[2021-02-15 04:00] VITALS: BP 134/75
[2021-02-15 05:14] LABS: BASOPHILS # (AUTO) 0.1 (0.0-0.1); BASOPHILS % 0.5 % (0.0-1.0); EOSINOPHILS # (AUTO) 0.2 (0.0-0.4); EOSINOPHILS % 1.7 % (0.0-6.0); HEMATOCRIT 38.4 % (34.2-44.1); HEMOGLOBIN 12.4 g/dL (12.0-16.0); LYMPHOCYTES # (AUTO) 2.2 (1.0-3.2); LYMPHOCYTES % 21.4 % (18.0-39.1); MEAN CORPUSCULAR HEMOGLOBIN 33.9 pg (28-32); MEAN CORPUSCULAR HGB CONC 32.3 g/dL (31-35); MEAN CORPUSCULAR VOLUME 104.9 fL (81-99); MONOCYTES # (AUTO) 1.1 (0.2-0.8); MONOCYTES % 10.2 % (4.4-11.3); NEUTROPHILS # (AUTO) 6.8 (2.1-6.9); NEUTROPHILS % 65.8 % (38.7-80.0); PLATELET COUNT 66 x10e3/uL (140-360); RED BLOOD COUNT 3.66 x10e6/uL (3.6-5.1); RED CELL DISTRIBUTION WIDTH 13.1 % (11.7-14.4)
[2021-02-15 05:35] LABS: ANION GAP 13.8 mmol/L (8-16); CALCIUM 8.8 mg/dL (8.4-10.2); CREATININE, SERUM 1.09 mg/dL (0.57-1.11); POTASSIUM 3.8 mmol/L (3.5-5.1)
[2021-02-15] MEDS: INSULIN LISPRO 100 UNIT/1 ML 3ML VIAL SQ SCH ×2 (07:30→11:30)
[2021-02-15 08:42] VITALS: BP_SYST 132; BP_SYST 134; BP_DIAS 108; BP_DIAS 75
[2021-02-15] MEDS: PANTOPRAZOLE SOD 40 MG TABEC PO SCH (09:31)
[2021-02-15] MEDS: LEVOTHYROXINE SODIUM 125 MCG TAB PO SCH (09:31)
[2021-02-15] MEDS: CYANOCOBALAMIN 1,000 MCG TAB PO SCH (09:32)
[2021-02-15] MEDS: METOPROLOL SUCCINATE 25 MG TAB XL PO SCH (09:32)
[2021-02-15] MEDS: LIDOCAINE 4% PATCH TP SCH (09:32)
[2021-02-15] MEDS: FOLIC ACID 1 MG TAB PO SCH (09:32)
[2021-02-15] MEDS: CEFTRIAXONE 1 GM in SODIUM CHLORIDE 0.9% 50ML 50 ML IV SCH (09:32)
[2021-02-15] MEDS: THIAMINE HCL 100 MG TAB PO SCH (09:32)
[2021-02-15] MEDS: DIVALPROEX SODIUM 250 MG TAB...DR PO SCH (09:32)
[2021-02-15 12:23] VITALS: BP 150/82
== END 2021-02-15 12:49 | DRG 282 ==
LOC: ER 09:40 → ERHOLD 12:28 → MED/SURG2 23:07 → OBSVTOIN 02-13 09:27
PROVIDERS: ADMIT Internal Medicine; ATTEND Internal Medicine
DX: I21.4 Non-ST elevation (NSTEMI) myocardial infarction (principal); E11.9 Type 2 diabetes mellitus without complications; I25.10 Atherosclerotic heart disease of native coronary artery without angina pectoris; K74.60 Unspecified cirrhosis of liver; E11.22 Type 2 diabetes mellitus with diabetic chronic kidney disease; I12.9 Hypertensive chronic kidney disease with stage 1 through stage 4 chronic kidney disease, or unspecified chronic kidney disease; N18.30 Chronic kidney disease, stage 3 unspecified; E88.09 Other disorders of plasma-protein metabolism, not elsewhere classified; K72.90 Hepatic failure, unspecified without coma; E03.9 Hypothyroidism, unspecified; D53.1 Other megaloblastic anemias, not elsewhere classified; E77.8 Other disorders of glycoprotein metabolism; G40.909 Epilepsy, unspecified, not intractable, without status epilepticus; S01.119A Laceration without foreign body of unspecified eyelid and periocular area, initial encounter; D69.59 Other secondary thrombocytopenia; Z20.822 Contact with and (suspected) exposure to COVID-19; I69.319 Unspecified symptoms and signs involving cognitive functions following cerebral infarction; F01.50 Vascular dementia, unspecified severity, without behavioral disturbance, psychotic disturbance, mood disturbance, and anxiety
CPT/HCPCS: 36415; 71045; 74176; 76705; 80048; 80053; 80061; 81001; 82140; 82550; 82553; 82607; 82746; 82948; 83036; 83735; 83880; 84443; 84484; 85025; 85610; 85730; 87086; 93005; 93306; 97139; 99251; 99284; G0378; J0696; J3411; U0002